=== PATIENT | male | born 1975 | race Caucasian/White ===

== ENCOUNTER 2017-10-01 15:44 | Inpatient (IN) | payer SELFPAY ==
--- NOTE | 2017-10-01 15:58 | EDPHY ---
HPI/HX/ROS/PE/MDM Narrative: CHIEF COMPLAINT: Shortness of breath, cough HPI: The patient is a 42 y/o male with a history of COPD, CHF, and hypertension complaining of worsening shortness of breath and a cough for several days. 1 month ago he arrived to [place] from [place]. Since being in [place], he has not worn oxygen at night, which he is supposed to. Several days ago he noticed bilateral leg redness, but does not believe he is retaining water. Denies history of DVT or PE. No chest pain, headache, abdominal pain, urinary or bowel complaints, fever, rash. REVIEW OF SYSTEMS: Aside from elements discussed in the HPI, a comprehensive 10-point review of systems was reviewed and is negative. PMH: COPD, CHF, hypertension, obesity SOCIAL HISTORY: Smoker, originally from [place] PHYSICAL EXAM: General: Patient is obese, alert, in no acute distress. ENT: Eyes are normal to inspection. ENT inspection normal. Neck: Normal inspection. Full range of motion. Respiratory:Scattered rales and rhonchi with poor air movement bilaterally Cardiovascular: Regular rate and rhythm. Strong peripheral pulses. Normal cap refill. Abdomen: The abdomen is nontender to palpation. There are no peritoneal signs. There are normal bowel sounds. Back: Normal to inspection. No tenderness to palpation. Skin: Normal color. No rash. Warm and dry. Extremities: 1+ pedal edema bilaterally. Full range of motion. Neuro: Oriented x3. Normal motor function. Normal sensory function. ED Course: 1607: Patient's O2Sats are 91% while on 5L room air. 1610: EKG was ordered and interpreted by myself. Please see ipnexus system for official reading. 1700: Patient's chest x-ray reveals CHF per radiologist's reading. Echocardiogram ordered. 1745: Echocardiogram does not show an effusion, but he is still tachycardic. Chest angio CT ordered. 1815: Spoke with Dr. Zapien, radiologist, regarding patient's chest angio CT. The CT reveals an infectious process primarily of the upper lobes, no PE. The patient does not have an elevated WBC. He will need to be admitted. 1820: Reassessed patient and discussed imaging and laboratory findings. He is currently comfortable while lying in bed on 5L room air using an Oxymizer. He is comfortable with plan for admission. 1823: Consulted with hospitalist service, Dr. Ghotra accepts admission of this patient. 1839: Patient is ambulating to the restroom without oxygen, he is not in any distress. MDM: This patient presents with hypoxia in setting of previous history of COPD, obesity and CHF. I see no signs of PE, ACS, acute decompensated CHF or PTX. - Data Points Imaging Results: Imaging Impressions Chest X-Ray 10/01/17 16:05 Impression: Acute CHF. Does this patient have a cardiomyopathy? Imaging: Discussed imaging studies w/ call out operator Radiologist, I viewed and interpreted images myself Laboratory Results: Laboratory Results 10/01/17 16:10 10/01/17 16:10 10/01/17 10/01/17 10/01/17 16:10 16:10 16:10 WBC 8.21 10^3/uL 10^3/uL (3.80-9.50) RBC 5.71 10^6/uL 10^6/uL (4.40-6.38) Hgb 18.1 g/dL H g/dL (13.7-17.5) Hct 53.6 % H % (40.0-51.0) MCV 93.9 fL fL (81.5-99.8) MCH 31.7 pg pg (27.9-34.1) MCHC 33.8 g/dL g/dL (32.4-36.7) RDW 15.9 % H % (11.5-15.2) Plt Count 239 10^3/uL 10^3/uL (150-400) MPV 8.9 fL fL (8.7-11.7) Neut % (Auto) 73.2 % % (39.3-74.2) Lymph % (Auto) 14.6 % L % (15.0-45.0) Grayson % (Auto) 10.4 % % (4.5-13.0) Eos % (Auto) 0.9 % % (0.6-7.6) Baso % (Auto) 0.5 % % (0.3-1.7) Nucleat RBC Rel Count 0.0 % % (0.0-0.2) Absolute Neuts (auto) 6.02 10^3/uL 10^3/uL (1.70-6.50) Absolute Lymphs (auto) 1.20 10^3/uL 10^3/uL (1.00-3.00) Absolute Monos (auto) 0.85 10^3/uL H 10^3/uL (0.30-0.80) Absolute Eos (auto) 0.07 10^3/uL 10^3/uL (0.03-0.40) Absolute Basos (auto) 0.04 10^3/uL 10^3/uL (0.02-0.10) Absolute Nucleated RBC 0.00 10^3/uL 10^3/uL (0-0.01) Immature Gran % 0.4 % % (0.0-1.1) Immature Gran # 0.03 10^3/uL 10^3/uL (0.00-0.10) D-Dimer 0.29 ug/mLFEU ug/mLFEU (0.00-0.50) Sodium 139 mEq/L mEq/L (135-145) Potassium 3.9 mEq/L mEq/L (3.5-5.2) Chloride 96 mEq/L L mEq/L (97-110) Carbon Dioxide 25 mEq/l mEq/l (22-31) Anion Gap 18 mEq/L H mEq/L (8-16) BUN 17 mg/dL mg/dL (7-23) Creatinine 0.8 mg/dL mg/dL (0.7-1.3) Estimated GFR > 60 Glucose 93 mg/dL mg/dL (70-100) Calcium 9.1 mg/dL mg/dL (8.5-10.4) Troponin I 0.033 ng/mL ng/mL (0.000-0.034) NT-Pro-B Natriuret Pep 68 pg/mL pg/mL (0-125) General Time Seen by Provider: 10/01/17 15:57 Initial Vital Signs: Initial Vital Signs Temperature (C) 36.9 C 10/01/17 15:45 Heart Rate 112 H 10/01/17 15:45 Respiratory Rate 18 10/01/17 15:45 Blood Pressure 128/81 H 10/01/17 15:45 O2 Sat (%) 82 L 10/01/17 15:45 O2 Delivery Mode Simple Mask O2 (L/minute) 5 Allergies/Adverse Reactions: meperidine [From Demerol] Allergy (Verified 10/01/17 15:45) Home Medications: Medication Instructions Recorded Albuterol [Proventil Inhaler HFA 1 - 2 puffs IH Q4H PRN 10/01/17 (*)] Albuterol [Proventil Neb] 3 ml IH QID PRN 10/01/17 Atorvastatin Calcium [Lipitor 10 10 mg PO DAILY 10/01/17 mg (*)] Carvedilol [Coreg (*)] 6.25 mg PO BIDMEAL 10/01/17 Furosemide [Lasix 40 MG (*)] 40 mg PO DAILY PRN 10/01/17 Lisinopril [Zestril 40 mg (*)] 40 mg PO BID 10/01/17 amLODIPine BESYLATE [Norvasc 5 mg 5 mg PO DAILY 10/01/17 (*)] Departure - Departure Disposition: [facility] Inpatient Acute Clinical Impression: Pneumonia Qualifiers: Pneumonia type: due to unspecified organism Laterality: unspecified laterality Lung location: upper lobe of lung Qualified Code(s): J18.1 - Lobar pneumonia, unspecified organism Condition: Fair Report Scribed for: Jonas Salinas Report Scribed by: Claudia Marin Date of Report: 10/01/17 Time of Report: 15:58 Physician Review and Approval Statement: Portions of this note were transcribed by an ED scribe. I personally performed the history, physical exam, and medical decision making; and confirm the accuracy of the information in the transcribed note.
--- NOTE | 2017-10-01 16:12 | CPEKG ---
Heart Rate: 113 RR Interval: 531 P-R Interval: 180 QRSD Interval: 92 QT Interval: 316 QTC Interval: 434 P Burnside: 26 QRS Burnside: 56 T Wave Burnside: -24 EKG Severity - BORDERLINE ECG - EKG Impression: SINUS TACHYCARDIA EKG Impression: BORDERLINE T ABNORMALITIES, DIFFUSE LEADS Electronically Signed By: Tavo Sweet 02-Oct-2017 12:59:08
[2017-10-01 16:20] LABS: PLATELET COUNT 239 10^3/uL (150-400)
[2017-10-01] MEDS ORDERED: IOPAMIDOL (ISOVUE 370) 100 ML BTL IV ONE (17:46)
--- NOTE | 2017-10-01 18:20 | ECHO ---
[email or web address] [address] [address] Main: [phone] Fax: Transthoracic Echocardiogram Name: MAXWELL LING MR#: [id number] Study Date: 10/01/2017 Study Time: 05:48 PM Date of : 1975 Age: 42 year(s) Height: 187 cm (73.62 in.) Weight: 173 kg (381.4 lb.) BSA: 2.85 m2 Gender: Male Examination: Limited Echo Indication: Low 02 Sats, Persistent Cough, Hypoxia, Tachycardia Image Quality: Contrast: Requested by: Jonas Salinas BP: 122 mmHg/80 mmHg Heart Rate: Rhythm: Indication: Low 02 Sats, Persistent Cough, Hypoxia, Tachycardia Procedure Staff [employer]iz[employer] Administrator: Geovani Marinelli RDCS Reading Physician: James Stinson MD Requesting Provider: Conclusions: 1)Technically limited echo secondary to body habitus. 2)Probably normal LV systolic function with a LVEF of 55-60%. Cannot accurately assess specific wall motions secondary to quality of images of endocardium 3)Mild RV enlargement with low normal RV systolic function. 4)No obvious severe TR. Cannot estimated accurate PA pressures. 5)Trivial pericardial effusion noted with no obvious tamponade. 6)Prominent pericardial fat pad noted. stat echo report called to ER staff. Measurements: Chambers Valvular Assessment AV/MV Valvular Assessment TV/PV Normal Normal Normal Name Value Range Name Value Range Name Value Range IVSd (2D): 1.6 cm (0.6 cm-1.1 MV E Vmax: 0.63 m/s ( - ) cm) MV A Vmax: 0.76 m/s ( - ) LVDd (2D): 4.1 cm (4.2 cm-5.9 MV E/A: 0.83 ( - ) cm) LVDs (2D): 2.7 cm (2.1 cm-4 cm) LVPWd (2D): 1.4 cm (0.6 cm-1 cm) LVEF (2D): 64 (>=54 %) RVDd(2D): 3.3 cm (1.9 cm-3.8 cmmm) Continued Measurements: Patient: MAXWELL LING Study Date: 10/01/2017 Page 1 of 2 05:48 PM Findings: Exam Comments: This is a limited echo to evaluate LV/RV function STAT on patient with low 02 sats and persistent cough, and to r/o a pericardial effusion. The Left Ventricle is hyperdynamic with a normal EF of approximately 50-60% The right venticle is normal size and function. No obvious TR to evaluate pulmonary pressures. There is no pericardial effusion. Technically difficult exam due to body habitus. Results were discussed with Dr Jonas Salinas. Consider clinical correlation due to patient condition, severe cough and hypoxia.. (No Signature Object) Patient: MAXWELL LING Study Date: 10/01/2017 Page 2 of 2 05:48 PM [id number]
[2017-10-01] MEDS ORDERED: NS 1,000 ML IV ONE (18:33)
[2017-10-01] MEDS ORDERED: guaiFENesin/CODEINE PHOS 10 ML UDCUP PO ONE (19:17)
[2017-10-01] MEDS ORDERED: guaiFENesin/CODEINE PHOS 10 ML UDCUP PO PRN (19:17)
[2017-10-01] MEDS ORDERED: ONDANSETRON 4 MG/2 ML VIAL IVP PRN (19:18)
[2017-10-01] MEDS ORDERED: ONDANSETRON DISINTEGRATING 4 MG TAB PO PRN (19:18)
[2017-10-01] MEDS ORDERED: ALBUTEROL 3 ML DEYVIAL IH PRN (19:18)
[2017-10-01] MEDS ORDERED: cefTRIAXone 1 GM in STERILE WATER INJ 10 ML IV SCH (19:30)
--- NOTE | 2017-10-01 20:08 | GHP ---
[f rep st] HISTORY AND PHYSICAL DATE OF ADMISSION: 10/01/2017 HISTORY OF PRESENT ILLNESS: The patient is a pleasant 42-year-old gentleman as of today, who present s with increased work of breathing. 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 He has noticed that he has had a difficult time breathing sinc e then. He is a smoker, and he is markedly obese at 172 kg. When he first got here he assumed he shen d pneumonia on the basis of shortness of breath without fever or chills. He therefore took some cipr ofloxacin which he had. He presents today with increased work of breathing. He had gone to [facility], he was found to be hypoxic. They tested him for influenza, it was negative. He had unremarkabl e chest x-ray. He was referred for here. Workup reveals normal D-dimer, indeterminate troponin, normal BNP, no metabolic alkalosis, polycythem ia. A chest x-ray (interpreted by me) showing possible CHF, a CTA of the chest (also interpreted by me) showing no pulmonary embolism, but upper lobe ground-glass nodularity. When I speak with the patient he is coughing, but able to speak in full sentences. He acknowledges t hat altitude does not agree with him, but he is acutely ill. 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 He does not have fever or chills, although last night he notes he could not get warm. He possibly shen s some myalgias. REVIEW OF SYSTEMS: Complete 10-point review of systems conducted, negative as noted in the HPI. PAST MEDICAL HISTORY: Obesity, hypertension, hyperlipidemia, EDIE, on CPAP. ALLERGIES: Demerol. HOME MEDICATIONS: Albuterol, amlodipine, atorvastatin, carvedilol, lisinopril, and furosemide. He t ook the furosemide just prior to getting here, and he has not urinated. SOCIAL HISTORY: He smokes cigarettes, about a pack a day. Drinks alcohol daily; it sounds like not to excess. FAMILY HISTORY: Notable for leukemia and diabetes. PHYSICAL EXAMINATION: VITAL SIGNS: Afebrile, blood pressure 128/81, pulse 112, breathing 18 times a minute, 82% on 2 L, on room air of 95% on 5 L. GENERAL: Increased work of breathing, but otherwise no acute distress. HEENT: Sclerae anicteric. Oropharynx clear. Mucous membranes are moist. NECK : Supple without lymphadenopathy. Cannot assess JVD secondary to habitus. LUNGS: Notable for air movement, but that is all I can hear given his size. HEART: S1, S2. No murmur palpable. ABDOMEN: Obese, soft. LOWER EXTREMITIES: Show trace edema bilaterally. Calves are nontender. SKIN: Witho ut rash. NEUROLOGIC: Nonfocal. LABORATORY TESTS: Sodium 139, potassium 3.9, chloride 96, bicarb 25, BUN 17, creatinine 0.8. Tropon in 0.033. BNP is 68. D-dimer 0.29. White count is 8, hematocrit is 54, platelets are 239,000. IMAGING: Studies are as in the HPI. EKG interpreted by me shows sinus tach at 113 with normal axis and intervals. No ST or T-wave changes. Echocardiogram performed in the emergency department shows poor windows, but LV function of 55% to 60 %. It sounds like they had difficult time seeing the exact wall motion. There is no obvious severe tricuspid regurgitation. Mild RV enlargement with low-normal RV systolic function. No evidence of t amponade. Trivial pericardial effusion. I have discussed the case Dr. Corby Salinas. ASSESSMENT/PLAN: 42-year-old gentleman presents with acute hypoxemic respiratory failure. 1. Acute hypoxemic respiratory failure. I believe this is secondary to a viral illness and/or pneum onia. He has received recent course of fluoroquinolone. I will start him on ceftriaxone and doxycyc line. He is influenza negative, so I will hold off on empiric Tamiflu. We will check respiratory sy ncytial virus as well. 2. Pneumonia as above. 3. Indeterminate troponin. We will cycle this. I suspect this is impact on his increased work of b reathing. 4. Obesity, hypoventilation syndrome. The patient has a normal serum bicarb, so he may not have it. I do note that in the past the patient had pneumonia, required outpatient oxygen therapy. I suspec t he will need oxygen on discharge. 5. Polycythemia. This is secondary to his sleep apnea and likely chronic hypoxia. 6. Prophylaxis. Pharmacologic prophylaxis indicated. DISPOSITION: Inpatient status, PCU. /[id number]/MODL
[2017-10-01] MEDS: NICOTINE 14 MG/24 HR PATCH TD SCH (21:51)
[2017-10-01] MEDS: LISINOPRIL 40 MG TAB PO SCH (21:52)
[2017-10-01] MEDS: DOXYCYCLINE INJ 100 MG in NS 250 ML IV SCH (22:47)
[2017-10-02 04:00] LABS: PLATELET COUNT 232 10^3/uL (150-400)
[2017-10-02] MEDS: ACETAMINOPHEN 325 MG TAB PO PRN ×2 (06:43→17:35)
--- NOTE | 2017-10-02 07:25 | PDMN ---
Medical Necessity Medical necessity: Pt meets INPT criteria per MD and [facility] M-282 Pneumonia, Community Acquired (with acute hypoxemic respiratory failure, RA sat 82%, indeterminate troponin, polycythemia; comorbid obesity, hypoventilation syndrome ).
[2017-10-02] MEDS ORDERED: chlordiazePOXIDE 25 MG CAP PO SCH (09:23)
[2017-10-02] MEDS: IPRATROPIUM/ALBUTEROL 3 ML DEYVIAL IH SCH ×3 (10:02→16:14)
[2017-10-02] MEDS: ENOXAPARIN 40 MG/0.4 ML SYR SC SCH ×2 (10:03→20:52)
[2017-10-02] MEDS: LISINOPRIL 40 MG TAB PO SCH ×2 (10:04→20:52)
[2017-10-02] MEDS: chlordiazePOXIDE 25 MG CAP PO SCH ×2 (10:06→20:53)
[2017-10-02] MEDS: ATORVASTATIN CALCIUM 10 MG TAB PO SCH (10:06)
[2017-10-02] MEDS: amLODIPine BESYLATE 5 MG TAB PO SCH (10:06)
[2017-10-02] MEDS: CARVEDILOL 6.25 MG TAB PO SCH ×2 (10:07→17:36)
[2017-10-02] MEDS: NICOTINE 14 MG/24 HR PATCH TD SCH (10:08)
[2017-10-02] MEDS: LORazepam 2 MG/ML INJ IVP PRN ×3 (10:16→20:51)
[2017-10-02] MEDS: DOXYCYCLINE INJ 100 MG in NS 250 ML IV SCH ×2 (11:24→20:53)
--- NOTE | 2017-10-02 12:03 | HOSPPROG ---
Hospitalist Progress Note Assessment/Plan: # Acute Alcohol withdrawal - pt drink 8-10 vodka drinks/day tremulous, anxious Tele (personally reviewed and interpreted) sinus tach 110' s - start CIWA - Librium 50mg now and scheduled - telemetry monitoring - iv thiamine - check phos # Acute hypoxic respiratory failure - suspect 2/2 PNA- oxygen saturations 96% on 6L viral pathogen + for human metapneumovirus- wbc 9.2 - cont empiric antibiotics - start beta agonists inhaled - monitor blood cultures # morbid obesity # EDIE- cont CPAP # HTN- cont home meds # proph -lovenox # diet- cardiac #dispo- > 2MN as pt acutely ill requiring IV medications for withdrawal I have discussed the case with RN - will treat aggressively on CIWA Subjective: feels anxious Objective: Vital Signs Temp Pulse Resp BP Pulse Ox 36.7 C 113 H 40 H 152/83 H 86 L 10/02/17 11:29 10/02/17 11:29 10/02/17 11:29 10/02/17 11:29 10/02/17 11:29 Microbiology 10/01/17 20:36 Respiratory Panel (PCR) - Final Nasal, Sinus - Swab Human Metapneumovirus Laboratory Results 10/02/17 03:35 10/02/17 03:35 10/01/17 10/02/17 10/03/17 05:59 05:59 05:59 Intake Total 300 Output Total 700 Balance -400 - Physical Exam Constitutional: obese Eyes: anicteric sclera Ears, Nose, Mouth, Throat: moist mucous membranes Cardiovascular: regular rate and rhythym, tachycardia Respiratory: respiratory distress, No expiratory wheeze Gastrointestinal: normoactive bowel sounds Genitourinary: no bladder fullness Skin: warm Musculoskeletal: No asymmetric calves Neurologic: AAOx3 Psychiatric: anxious Lymph, Heme, Immunologic: no cervical LAD ICD10 Worksheet Patient Problems: Problems Problem Status Onset Pneumonia Acute
--- NOTE | 2017-10-02 14:57 | ASMTCMCOM ---
CM Note CM Note Notes: Chart reviewed. Discussed patient care in round. 42 year old male admitted via ED for c/o sob and hypoxia. He is here from [place] . He has been feeling unwell. He also admits to ETOH of 10 vodkas a day, Currently on CIWA and sleeping due to medications. He has been screened as he is self pay and since he is out of state, no current resources available. CM to follow. Date Signed: 10/02/2017 02:56 PM Electronically Signed By:Rajani Kasper RN
[2017-10-03] MEDS: IPRATROPIUM/ALBUTEROL 3 ML DEYVIAL IH SCH ×4 (04:16→17:18)
[2017-10-03] MEDS: LORazepam 2 MG/ML INJ IVP PRN ×4 (04:48→13:00)
[2017-10-03] MEDS: ATORVASTATIN CALCIUM 10 MG TAB PO SCH (07:51)
[2017-10-03] MEDS: amLODIPine BESYLATE 5 MG TAB PO SCH (07:51)
[2017-10-03] MEDS: LISINOPRIL 40 MG TAB PO SCH (07:51)
[2017-10-03] MEDS: chlordiazePOXIDE 25 MG CAP PO SCH ×2 (07:51→17:16)
[2017-10-03] MEDS: CARVEDILOL 6.25 MG TAB PO SCH ×2 (07:51→17:16)
[2017-10-03] MEDS: ENOXAPARIN 40 MG/0.4 ML SYR SC SCH ×2 (07:52→20:52)
[2017-10-03] MEDS: NICOTINE 14 MG/24 HR PATCH TD SCH (08:43)
[2017-10-03] MEDS: THIAMINE HCL 500 MG in NS 500 ML IV SCH (08:43)
[2017-10-03] MEDS: DOXYCYCLINE INJ 100 MG in NS 250 ML IV SCH ×2 (08:43→20:52)
[2017-10-03] MEDS: ACETAMINOPHEN 325 MG TAB PO PRN (09:57)
[2017-10-03] MEDS: methylPREDNISolone SOD SUCC 125 MG/2 ML VIAL IVP SCH ×3 (09:57→17:16)
[2017-10-03] MEDS ORDERED: FUROSEMIDE 20 MG/2 ML VIAL IVP ONE (10:03)
--- NOTE | 2017-10-03 14:35 | GCON ---
[f rep st] CONSULTATION DISTANCE LEARNING COORDINATOR CONSULTATION REASON FOR ADMISSION: Hypercarbic respiratory failure, viral pneumonia. HISTORY: The patient is a pleasant 42-year-old white male, with a past medical history including mor bid obesity, hypertension, hyperlipidemia, obstructive sleep apnea, for which he is on CPAP. He has been visiting [place] since mid August. He presented to the emergency room on the , with comp laints of breathlessness and increased work of breathing. He originally went to urgent care, and was found to be hypoxemic, and was transferred to our emergency room. He was initially admitted to the floor, however, secondary to breathlessness and some somnolence, an arterial blood gas was performed, he was found to be hypercarbic, and he subsequently has been transferred to the intensive care unit. He is currently on BiPAP. He denies any chest pain, pleuritic-type chest pain or angina equivalent . There is no fever or night sweats. REVIEW OF SYSTEMS: A 10-point review of systems was performed and is negative except for what is in HPI. PAST MEDICAL HISTORY: He has morbid obesity, hyperlipidemia, obstructive sleep apnea, for which he i s on CPAP, and hypertension. ALLERGIES: Demerol. FAMILY HISTORY: Significant for leukemia and diabetes. SOCIAL HISTORY: He is a 20+ pack-year smoker and continues to smoke. He drinks alcohol daily. 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 MEDICATIONS: At home include albuterol, amlodipine, atorvastatin, carvedilol, lisinopril and Lasix. PHYSICAL EXAM: VITAL SIGNS: Blood pressure 133/75, pulse is 97, respirations 23, temperature is 37. 2, oxygen saturation 98% on BiPAP 60%. GENERAL: He is a morbidly obese, but very pleasant, 42-year- old white male, who is resting comfortably, in no acute distress. HEENT: Eyes are PERRLA, EOMI. Th roat exam is deferred secondary to BiPAP. NECK: Supple. There is no cervical adenopathy. HEART: Regular rate and rhythm. HEART: Sounds are distant. LUNGS: Diminished breath sounds, but no wheez e. ABDOMEN: Soft, nontender. Bowel sounds are present. EXTREMITIES: No clubbing, cyanosis, or ed annalise. LABORATORIES: White count 7.1, hemoglobin 17, hematocrit 53, platelet count is 293. Sodium 142, pot assium 4.9, chloride 97, CO2 is 36, BUN 16, creatinine 0.7, glucose is 111. Influenza A and B are ne gative. RSV is negative. Arterial blood gas: PH is 7.28, pCO2 of 73, pO2 of 63, bicarb is 35, oxyge n saturation 90%. CT angiogram of the chest shows bilateral ground-glass attenuation in the upper lobes. Echocardiogra m shows normal ejection fraction of 55% to 60%. They are unable to evaluate pulmonary pressures seco ndary to body habitus. IMPRESSION: 1. Hypercarbic respiratory failure. I feel this is a combination of his obstructive sleep apnea, li quin obesity hypoventilation syndrome, and viral lung infection. 2. Viral pneumonia with human metapneumovirus. 3. Morbid obesity. 4. Obstructive sleep apnea. 5. Probable obesity hypoventilation syndrome. 6. Hypertension. 7. Hyperlipidemia. 8. Obstructive sleep apnea. 9. Tobacco abuse. RECOMMENDATIONS: 1. We will continue BiPAP for now. 2. We will repeat ABG in approximately 2 hours. 3. deep vein thrombosis and pulmonary embolus prophylaxis. 4. Close cardiovascular monitoring. 5. Stress ulcer prophylaxis. 6. Continue the majority of his home medications. 7. Agree with droplet and contact precautions. /[id number]/MODL
[2017-10-03] MEDS ORDERED: LIDOCAINE 1% 300 MG/30 ML SDV ONE (18:11)
[2017-10-03] MEDS ORDERED: LIDOCAINE 2% JELLY 20 ML (UROJECT) ONE (18:11)
[2017-10-03] MEDS ORDERED: LIDOCAINE 2% JELLY 5 ML TUBE ONE (18:12)
[2017-10-03] MEDS ORDERED: BENZOCAINE UNIT DOSE SPRAY HURRICAINE MM ONE (18:23)
[2017-10-03] MEDS ORDERED: PROPOFOL/EMULSION 1,000 MG/100 ML BOTTLE IV ONE (18:25)
[2017-10-03] MEDS ORDERED: fentanYL/NACL/100 ML BAG IV ONE (18:26)
--- NOTE | 2017-10-03 18:29 | HOSPPROG ---
Hospitalist Progress Note Assessment/Plan: Assessment: 42-year-old male presenting with acute hypoxic and hypercapnic respiratory failure secondary to human metapneumovirus Plan: # Acute human metapneumovirus viral pneumonia. Bilateral and worsening on CXR today, high risk for requiring intubation # Acute Alcohol withdrawal. Heavy use hx, escalating 10/02, requiring schedule librium - despite scheduled librium 50 tid, required escalating doses of IV ativan this AM, transferred to SDU # Acute encephalopathy. Evidenced by global brain dysfunction characterized as somnolence, unresponsive to verbal stimuli, all of which are an acute change from baseline, likely 2/2 metabolic effects of hypercapnea + toxic effects of benzos used to tx alcohol withdraw # Acute hypercapnic and hypoxic respiratory failure. Evidenced by pH 7.28/pCO2 73 + SpO2 62% on room air, visible tachypnea and labored breathing (RR 40), requiring 15LPM and then BiPAP, 2/2 viral PNA w/ possible reactive airway component - identified as critically ill this AM, started BiPAP, transferred to Step Down Unit - 40 minutes of total critical care time spent this AM assessing patient, performing additional w/u, facilitating SDU transfer - worsening ABG this afternoon and ongoing tachypnea, intubated this evening # Possible acute reactive airway exacerbation. Evidenced by diffuse exp wheezes , heavy smoking hx, likely also having OHS component - start methylpred 60 q6, heavenly duonebs, cont doxy - BiPaP, then intubation, as above # morbid obesity and likely OHS # EDIE # HTN # proph - lovenox 40 # diet - NPO # code - full # dispo - ADD uncertain, critically ill Subjective: patient w/ somnolence, visible resp distress this AM Objective: Vital Signs Temp Pulse Resp BP Pulse Ox 37.2 C 83 30 H 135/63 H 93 10/03/17 07:42 10/03/17 17:16 10/03/17 17:00 10/03/17 17:16 10/03/17 17:00 Laboratory Results 10/03/17 03:56 10/03/17 16:15 10/02/17 10/03/17 10/04/17 05:59 05:59 05:59 Intake Total 300 2150 Output Total 700 900 Balance -400 1250 - Physical Exam Constitutional: obese, uncomfortable, other (diaphoretic ), No no apparent distress (moderate distress) Cardiovascular: tachycardia, edema (trace bilat LE), No systolic murmur, No irregularly irregular Respiratory: expiratory wheeze, inspiratory crackles, respiratory distress ( visible tachypnea and labored breathing) Gastrointestinal: normoactive bowel sounds, soft, non-tender abdomen, no palpable masses Neurologic: AAOx3 Psychiatric: encephalopathic (somnolent, not responsive to verbal stimuli, responds to tactile stimuli, concentration 7/7 once awakened), flat affect ICD10 Worksheet Patient Problems: Problems Problem Status Onset Pneumonia Acute
--- NOTE | 2017-10-03 18:45 | SOAPPROG ---
SOAP Progress Note Assessment/Plan: Assessment: RESPIRATORY FAILURE SECONDARY TO MORBID OBESITY AND PULMONARY INFECTION. Plan: Requested intubation. Fentanyl 150 mcg and versed 3 mg IV sedation given. Posterior pharynx sprayed with huricaine spray. Glidescope inserted and good view of VC obtained. Rocuronium 60 mg IV given. Glidescope placed and ETT passed , one attempt. Colormetric detection of CO2 confirmed trachial placement. 10/03/17 18:42 10/03/17 18:46 Subjective: Morbidly obese male with CPAP mask in place. SPO2 90's. spontaneous respiration. Objective: Vital Signs Temp Pulse Resp BP Pulse Ox 37.2 C 83 30 H 135/63 H 93 10/03/17 07:42 10/03/17 17:16 10/03/17 17:00 10/03/17 17:16 10/03/17 17:00 Laboratory Results 10/03/17 03:56 10/03/17 16:15 10/02/17 10/03/17 10/04/17 05:59 05:59 05:59 Intake Total 300 2150 Output Total 700 900 Balance -400 1250 ICD10 Worksheet Patient Problems: Problems Problem Status Onset Pneumonia Acute
[2017-10-03] MEDS ORDERED: fentaNYL 100 MCG/2 ML INJ ONE (19:12)
[2017-10-03] MEDS ORDERED: MIDAZOLAM 2 MG/2 ML VIAL ONE (19:12)
[2017-10-03] MEDS ORDERED: ROCURONIUM 100 MG/10 ML VIAL ONE (19:12)
[2017-10-03] MEDS ORDERED: PROTOCOL POTASSIUM 1 DOSE MISC PRN (20:24)
[2017-10-03] MEDS ORDERED: PROTOCOL MAGNESIUM 1 DOSE IV PRN (20:24)
[2017-10-03] MEDS: PROPOFOL/EMULSION 100 ML IV SCH (20:51)
[2017-10-03] MEDS: FAMOTIDINE 20 MG/NACL 50 ML IV SCH (20:52)
[2017-10-03] MEDS: CHLORHEXIDINE GLUCONATE 15 ML UDL PO SCH (20:52)
[2017-10-03] MEDS: VECURONIUM BROMIDE 50 MG in D5W 50 ML IV SCH (21:41)
--- NOTE | 2017-10-03 22:07 | POSTOPPROG ---
Post Op Note Date of Operation: 10/03/17 Surgeon: Cristian Jefferson Anesthesia: Local (Specify) Pre-op Diagnosis: respiratory failure Post-op Diagnosis: same Procedure: R IJ TLC placement Findings: good draw/flush all 2 ports Inf/Abcess present in the surg proc area at time of surgery?: No
[2017-10-03] MEDS: NS 1,000 ML IV SCH (23:02)
--- NOTE | 2017-10-03 23:56 | GOP ---
[f rep st] OPERATIVE REPORT DATE OF OPERATION: SURGEON: Cristian Jefferson MD ANESTHESIA: Local anesthetic. PREOPERATIVE DIAGNOSIS: Poor IV access, viral pneumonia. POSTOPERATIVE DIAGNOSIS: Poor IV access, viral pneumonia. PROCEDURE PERFORMED: Central line placement, right internal jugular. FINDINGS: Good flush into all 3 ports. INDICATIONS: A42 year-old gentleman who presents with infection, respiratory failure. He has been intubated. He has poor IV access. DESCRIPTION OF PROCEDURE: Patient is a gentleman who has preoperative identification of the cannulation site done with [employer], and sterile draping and prep was performed in the standard fashion. Time-out procedure was then done according to institutional standards. Local anesthetic was infused in skin and subcutaneous tissues, and, with a second stick in the right IJ, the IJ was cannulated with an 18-gauge needle. Seldinger technique was used to maintain access, and the area was dilated, and then catheter was placed in to 20 cm without difficulty. The catheter was secured in place. Biopatch placed. Good blood draw and flush on all 3 ports. Chest x-ray is pending. /[id number]/MODL MTDD
[2017-10-04] MEDS: ALBUTEROL 60 PUFFS/8 GM MDI IH SCH ×7 (00:03→23:52)
[2017-10-04] MEDS: VECURONIUM BROMIDE 50 MG in D5W 50 ML IV SCH (00:11)
[2017-10-04] MEDS: LISINOPRIL 40 MG TAB PO SCH ×3 (00:48→21:55)
[2017-10-04] MEDS: chlordiazePOXIDE 25 MG CAP PO SCH ×2 (00:48→11:00)
[2017-10-04] MEDS: PROPOFOL/EMULSION 100 ML IV SCH ×7 (00:53→22:15)
[2017-10-04] MEDS: methylPREDNISolone SOD SUCC 125 MG/2 ML VIAL IVP SCH ×4 (00:54→18:09)
[2017-10-04] MEDS: fentaNYL/NACL 100 ML IV SCH ×2 (00:54→22:15)
[2017-10-04] MEDS: NS 1,000 ML IV SCH ×2 (00:55→16:59)
[2017-10-04] MEDS: VECURONIUM BROMIDE IV SCH ×2 (02:13→19:00)
[2017-10-04] MEDS: D5W IV SCH ×2 (02:13→19:00)
[2017-10-04] MEDS ORDERED: MAGNESIUM SULF 1 GM/DEXTROSE 100 ML IV ONE ×2 (03:15→06:00)
[2017-10-04 04:53] LABS: PLATELET COUNT 224 10^3/uL (150-400)
[2017-10-04 05:25] LABS: INR 1.04 (0.83-1.16); PROTIME(PATIENT) 13.8 SEC (12.0-15.0)
--- NOTE | 2017-10-04 09:00 | PDINTPN ---
Data Processor Progress Note Assessment/Plan: Assessment/plan: * Acute respiratory failure secondary to viral pneumonia and obesity hypoventilation syndrome. Tenuous on mechanical ventilation. Peak pressures are somewhat high. -will continue paralytic for now -will place patient on pressure control ventilation -recheck ABG later today * Viral pneumonia-human metapneumovirus. * Atelectasis-likely secondary to mucus plug. Will perform fiberoptic bronchoscopy today * Morbid obesity * Obesity hypoventilation syndrome * Obstructive sleep apnea * Sedation-adequate on propofol, fentanyl and paralytic * Hypertension-controlled * Tobacco abuse * VTE prophylaxis * Stress ulcer prophylaxis * Nutrition-none currently -will consult dietary and start tube feeds today Subjective: Sedated on mechanical ventilation Objective: Vital Signs Temp Pulse Resp BP Pulse Ox 35.5 C L 69 22 H 148/72 H 93 10/04/17 07:00 10/04/17 07:00 10/04/17 07:00 10/04/17 07:00 10/04/17 07:00 Laboratory Results 10/04/17 04:15 10/04/17 04:15 10/03/17 10/04/17 10/05/17 05:59 05:59 05:59 Intake Total 2150 1933 Output Total 900 600 Balance 1250 1333 PT 13.8 SEC (12.0-15.0) 10/04/17 04:15 INR 1.04 (0.83-1.16) 10/04/17 04:15 Laboratory Results 10/04/17 04:15 10/04/17 04:15 10/04/17 10/04/17 05:55 04:15 Patient Temperature 35.4 DEGREES DEGREES pCO2 42 mmHg H mmHg (34 - 38) pO2 53 mmHg L mmHg (65 - 75) Total CO2 29 mEq/L H mEq/L (23 - 27) ABG pH 7.42 (7.35 - 7.45) ABG PO2/FiO2 Ratio 53 RATIO RATIO ABG HCO3 27 mEq/L H mEq/L (22 - 26) ABG O2 Saturation 91 % L % (92 - 95) ABG Base Excess 2.3 mEq/L mEq/L (-2.5 - 2.5) O2 Concentration % 100 % % Actual Respiration Rate 22 Set Respiration Rate 22 SIMV YES Tidal Volume 600 End Tidal CO2 55 PEEP 12 Pressure Support 7 Calcium 8.8 mg/dL mg/dL (8.5 - 10.4) Magnesium 1.7 mg/dL mg/dL (1.6 - 2.3) Total Bilirubin 0.8 mg/dL mg/dL (0.1 - 1.4) AST 62 IU/L H IU/L (17 - 59) Alkaline Phosphatase 82 IU/L IU/L (38 - 126) Total Protein 6.0 g/dL L g/dL (6.3 - 8.2) Albumin 3.4 g/dL L g/dL (3.5 - 5.0) Chest [id number] by myself. Central line in good position. Endotracheal tube is in good position. There is some evidence of cardiomegaly. There is atelectasis in the right lower lobe - Time Spent With Patient Time Spent With Patient: 35 min of critical care time spent with patient. Case discussed with respiratory therapy and nursing Physical Exam - Physical Exam General Appearance: obese (Morbidly), No alert (Sedated) EENT: PERRL/EOMI, ET tube Neck: non-tender Respiratory: decreased breath sounds, crackles, No wheezing Cardiac/Chest: normal peripheral pulses, regular rate, rhythm Abdomen: normal bowel sounds, non-tender, soft Male Genitalia: deferred Rectal: deferred Skin: normal color, warm/dry Extremities: non-tender, normal inspection, normal capillary refill Neuro/Psych: No alert (Sedated) ICD10 Worksheet Patient Problems: Problems Problem Status Onset Pneumonia Acute
[2017-10-04] MEDS: ENOXAPARIN 40 MG/0.4 ML SYR SC SCH ×2 (10:25→21:54)
[2017-10-04] MEDS: NICOTINE 14 MG/24 HR PATCH TD SCH (10:25)
[2017-10-04] MEDS: FAMOTIDINE 20 MG/NACL 50 ML IV SCH ×2 (10:26→21:54)
[2017-10-04] MEDS: amLODIPine BESYLATE 5 MG TAB PO SCH (10:31)
[2017-10-04] MEDS: CHLORHEXIDINE GLUCONATE 15 ML UDL PO SCH ×2 (10:31→21:54)
[2017-10-04] MEDS: ATORVASTATIN CALCIUM 10 MG TAB PO SCH (11:00)
[2017-10-04] MEDS: CARVEDILOL 6.25 MG TAB PO SCH (11:00)
[2017-10-04] MEDS: DOXYCYCLINE INJ 100 MG in NS 250 ML IV SCH ×2 (11:14→21:54)
[2017-10-04] MEDS: THIAMINE HCL 500 MG in NS 500 ML IV SCH (11:15)
--- NOTE | 2017-10-04 12:14 | HOSPPROG ---
Hospitalist Progress Note Assessment/Plan: 42-year-old male presenting with acute hypoxic and hypercapnic respiratory failure secondary to human metapneumovirus # Acute human metapneumovirus viral pneumonia. -Initially started on Doxy, cont IV for now # Acute hypercapnic and hypoxic respiratory failure. -Mechanical ventilation -pulm following #Obesity Hypoventilation Syndrome, EDIE #Likely Obstructive airway disease, Tobacco abuse disorder -Cont Solumedrol, Doxy -Nicotine Patch # Acute Alcohol withdrawal. Heavy use hx, escalating 10/02, requiring schedule librium prior to intubation - stop Librium -Cont CIWA -Schedule IV Ativan # Acute encephalopathy. # morbid obesity # HTN -BPs ok -Holding PO meds now. NO known history of Afib. # proph - lovenox 40 # diet - NPO, will start tube feeds today via NGT. NS at 75ml/hr # code - full # dispo - ADD uncertain, critically ill total critical care time on this patient with resp failure, viral pneumonia, and ETOH WD is 35 minutes Subjective: intubated overnight. sedated currently. BP 120's systolic Objective: Vital Signs Temp Pulse Resp BP Pulse Ox 35.7 C L 71 22 H 124/64 H 95 10/04/17 11:00 10/04/17 11:00 10/04/17 11:00 10/04/17 11:00 10/04/17 11:00 Laboratory Results 10/04/17 04:15 10/04/17 04:15 10/03/17 10/04/17 10/05/17 05:59 05:59 05:59 Intake Total 2150 1933 Output Total 900 600 Balance 1250 1333 PT 13.8 SEC (12.0-15.0) 10/04/17 04:15 INR 1.04 (0.83-1.16) 10/04/17 04:15 - Physical Exam Constitutional: no apparent distress Ears, Nose, Mouth, Throat: moist mucous membranes Cardiovascular: regular rate and rhythym, No JVD, No edema Respiratory: no respiratory distress, reduced air movement Gastrointestinal: normoactive bowel sounds, No distension Skin: warm Neurologic: No AAOx3 Psychiatric: encephalopathic, other (sedated) Lymph, Heme, Immunologic: No petechiae ICD10 Worksheet Patient Problems: Problems Problem Status Onset Pneumonia Acute
[2017-10-04] MEDS: LORazepam 2 MG/ML INJ IV SCH ×2 (12:49→18:10)
[2017-10-04] MEDS ORDERED: LIDOCAINE 1% 300 MG/30 ML SDV ONE (14:41)
[2017-10-04] MEDS ORDERED: LIDOCAINE 2% JELLY 5 ML TUBE ONE (14:42)
--- NOTE | 2017-10-04 15:33 | GPN ---
[f rep st] PROCEDURE NOTE PROCEDURE: Fiberoptic bronchoscopy. INDICATION: Mucous plugging. ANESTHESIA GIVEN: Patient is currently sedated, paralyzed and on mechanical ventilation. Procedure was performed in the intensive care unit with continuous pulse ox, EKG and blood pressure monitoring. Please note N95 masks were used by all throughout the procedure. Also note, the patient is on [facility] anical ventilation which is by definition a closed system and poses no risk to airborne pathogens. PROCEDURE IN DETAIL: After a time-out was performed, bronchoscope was entered through a #7.5 endotra cheal tube. Distal trachea and fredy were visualized, showed no endobronchial lesion, normal-appear ing mucosa. Bronchoscope entered in the left lung. Left upper lobe, lingula, left lower lobe includ ing subsegments were visualized, showed no endobronchial lesions and normal-appearing mucosa. Bronch oscope entered in the right lung. Right upper lobe, right middle lobe, including subsegments were felix bsequently visualized and showed no endobronchial lesion, normal-appearing mucosa. Bronchoscope was then entered into the right lower lobe. There was copious amounts of thick tenacious mucus plugging throughout all basilar segments as well as superior segment. These were therapeutically aspirated. Bronchoalveolar lavage taken from the right lower lobe. This was sent for C and S, AFB, and fungal c ultures. Patient tolerated the procedure well. There were no apparent complications. /[id number]/MODL
[2017-10-04] MEDS ORDERED: LIDOCAINE 2% JELLY 5 ML TUBE TP ONE (16:11)
[2017-10-04] MEDS ORDERED: LIDOCAINE 1% 300 MG/30 ML SDV MISC ONE (16:11)
[2017-10-05] MEDS: LORazepam 2 MG/ML INJ IV SCH ×5 (01:39→23:37)
[2017-10-05] MEDS: methylPREDNISolone SOD SUCC 125 MG/2 ML VIAL IVP SCH ×3 (01:39→11:35)
[2017-10-05 04:05] LABS: PLATELET COUNT 240 10^3/uL (150-400)
[2017-10-05] MEDS: ALBUTEROL 60 PUFFS/8 GM MDI IH SCH ×6 (04:21→23:50)
[2017-10-05] MEDS: NS 1,000 ML IV SCH ×2 (05:32→19:28)
[2017-10-05] MEDS: D5W IV SCH (05:32)
[2017-10-05] MEDS: VECURONIUM BROMIDE IV SCH (05:32)
[2017-10-05] MEDS: PROPOFOL/EMULSION 100 ML IV SCH ×8 (06:52→23:37)
[2017-10-05] MEDS: DOXYCYCLINE INJ 100 MG in NS 250 ML IV SCH (09:08)
[2017-10-05] MEDS: THIAMINE HCL 500 MG in NS 500 ML IV SCH (09:08)
[2017-10-05] MEDS: FAMOTIDINE 20 MG/NACL 50 ML IV SCH ×2 (09:09→21:14)
[2017-10-05] MEDS: NICOTINE 14 MG/24 HR PATCH TD SCH (09:09)
[2017-10-05] MEDS: ENOXAPARIN 40 MG/0.4 ML SYR SC SCH ×2 (09:09→21:14)
[2017-10-05] MEDS: CHLORHEXIDINE GLUCONATE 15 ML UDL PO SCH ×2 (09:10→21:14)
[2017-10-05] MEDS ORDERED: THIAMINE HCL 100 MG TAB PO SCH (09:23)
[2017-10-05] MEDS: fentaNYL/NACL 100 ML IV SCH ×2 (11:31→21:14)
--- NOTE | 2017-10-05 12:05 | HOSPPROG ---
Hospitalist Progress Note Assessment/Plan: # acute hypercapnic and hypoxic resp failure d/t human metapneumovirus; underlying OHS/EDIE - s/p bronch - cx NGTD - cont mechanical ventilation, sedation, paralytics - stop doxy today - consider stopping steroids # hypotension (has a history of hypertension) - currently holding meds # etOH abuse - currently on propofol to control withdrawal # morbid obesity - BMI 48 # acute encephalopathy - d/t above # pulmonary nodularity - needs f/t CT in 3-6 months # tobacco use # FEN - start trickle feeds today # ppx - pepcid, lovenox Subjective: intubated, sedated, paralyzed Objective: Vital Signs Temp Pulse Resp BP Pulse Ox 35.9 C L 81 22 H 117/83 H 89 L 10/05/17 09:00 10/05/17 09:25 10/05/17 09:25 10/05/17 09:00 10/05/17 09:25 Microbiology 10/04/17 15:15 Gram Stain - Final Lung Right Lobe - Bronchial Washings Laboratory Results 10/05/17 03:50 10/05/17 03:50 10/04/17 10/05/17 10/06/17 05:59 05:59 05:59 Intake Total 1933 3895 Output Total 600 2350 Balance 1333 1545 PT 13.8 SEC (12.0-15.0) 10/04/17 04:15 INR 1.04 (0.83-1.16) 10/04/17 04:15 critical care time 35 minutes; critically ill from respiratory failure requiring mechanical ventilation - Physical Exam Constitutional: obese Ears, Nose, Mouth, Throat: other (ET tube) Cardiovascular: no murmur, rub, or gallop, systolic murmur Respiratory: no rales or rhonchi, clear to auscultation Gastrointestinal: soft, non-tender abdomen, no palpable masses Genitourinary: simmons in urethra ICD10 Worksheet Patient Problems: Problems Problem Status Onset Pneumonia Acute
--- NOTE | 2017-10-05 12:15 | PDINTPN ---
Intrusion Analyst Progress Note Assessment/Plan: Assessment/plan: 42 morbidly obese Lokesh vasquez from [place] since Aug admitted 10/01/17 with SOB after self treating "pneumonia" with cipro. He was apparently hypoxic as well at an urgent care. On arrival he was admitted to the floor on 6 lpm NC, and on HD#2 showed signs of etoh withdrawal and admitted to 8-10 vodkas daily so was started on Librium and CIWA protocol. On 10/03 he was somnolent and an ABG showed an acute hypercapnic respiratory failure treated initially with BIPAP. However, by 1799 his ABG was worse and required intubation by anesthesia via glidescope on 1st attempt. His CXR has been fairly unremarkable save for small- moderate pleural effusions, but because of increasing airway pressures was paralyzed and placed on PC ventilation on 10/04. A procalcitonin on 10/05 was unremarkable, and he was switched back to AC. * Acute hypercapneic respiratory failure- the etiology is uncertain to me but may be a combination of sedation, EDIE, bipap failure, and fluid overload. With a low procalcitonin on admission of 0.07, infection seems unlikely, but will recheck now. A new ABG is pending at this time as we attempt to de-escalate his respiratory support. At this time I dont think he is an ECMO/ECOR candidate. In effort to reduce his risk of critical illness myopathy, will attempt to dc vecuronium today, continue with deep sedation, and reduce FiO2 as tolerated. Additional bronchoscopy not indicated, nor is ongoing antibiotics- agree with dc doxycycline. * ETOH wd- impossible to evaluate under the current circumstances. Watch for signs of WD and continue with thiamine, MVI. * COPD? he is a bit young to develop significant COPD and does not have asthma in his PMH. I'm not clear systemic steroids are beneficial at this point so will hold for now. * HTN- stable for now. * * * critical care time 65 minutes including bedside eval, chart review and discussion with multiple providers Subjective: Paralyzed and sedated; no acute events overnight Objective: Vital Signs Temp Pulse Resp BP Pulse Ox 35.9 C L 81 22 H 117/83 H 89 L 10/05/17 09:00 10/05/17 09:25 10/05/17 09:25 10/05/17 09:00 10/05/17 09:25 Microbiology 10/04/17 15:15 Gram Stain - Final Lung Right Lobe - Bronchial Washings Laboratory Results 10/05/17 03:50 10/05/17 03:50 10/04/17 10/05/17 10/06/17 05:59 05:59 05:59 Intake Total 1933 3895 Output Total 600 2350 Balance 1333 1545 PT 13.8 SEC (12.0-15.0) 10/04/17 04:15 INR 1.04 (0.83-1.16) 10/04/17 04:15 Physical Exam - Physical Exam General Appearance: no apparent distress, obtunded, obese EENT: PERRL/EOMI Neck: supple Respiratory: lungs clear, decreased breath sounds, No respiratory distress, No accessory muscle use, No rales, No rhonchi Cardiac/Chest: regular rate, rhythm, No edema Abdomen: normal bowel sounds, non-tender, soft, No distended Skin: normal color, warm/dry, No cyanosis Lymphatic: no adenopathy Extremities: No pedal edema Neuro/Psych: cognition abnormalities, No abnormal appraiser oil and water II-XII ICD10 Worksheet Patient Problems: Problems Problem Status Onset Pneumonia Acute
[2017-10-05] MEDS: LISINOPRIL 40 MG TAB PO SCH (12:51)
[2017-10-05] MEDS ORDERED: LIDOCAINE 1% 300 MG/30 ML SDV ONE (15:13)
[2017-10-05] MEDS ORDERED: LIDOCAINE 2% JELLY 5 ML TUBE ONE (15:16)
--- NOTE | 2017-10-05 16:37 | ASMTCMCOM ---
CM Note CM Note Notes: Patient remains on the vent. Parents Dionne and Aubrey live in [place] phone# [phone]. Sister and mother may be coming to [place]. Patient in [place] working. CM to talk with family Thursday re: Med Proxy. Date Signed: 10/05/2017 04:36 PM Electronically Signed By:Genesis Bocanegra LCSW
[2017-10-06] MEDS: PROPOFOL/EMULSION 100 ML IV SCH ×9 (02:03→23:46)
[2017-10-06] MEDS: ALBUTEROL 60 PUFFS/8 GM MDI IH SCH ×6 (03:40→23:24)
[2017-10-06] MEDS: fentaNYL/NACL 100 ML IV SCH ×3 (04:40→21:44)
[2017-10-06 05:14] LABS: PLATELET COUNT 229 10^3/uL (150-400)
[2017-10-06] MEDS: LORazepam 2 MG/ML INJ IV SCH ×4 (05:55→23:46)
[2017-10-06] MEDS: NS 1,000 ML IV SCH ×2 (05:58→21:44)
[2017-10-06] MEDS: VECURONIUM BROMIDE IV SCH ×2 (06:30→16:29)
[2017-10-06] MEDS: D5W IV SCH ×2 (06:30→16:29)
[2017-10-06] MEDS: CHLORHEXIDINE GLUCONATE 15 ML UDL PO SCH ×2 (08:24→20:24)
[2017-10-06] MEDS: FAMOTIDINE 20 MG/NACL 50 ML IV SCH ×2 (08:39→20:24)
[2017-10-06] MEDS: ENOXAPARIN 40 MG/0.4 ML SYR SC SCH ×2 (08:39→20:24)
--- NOTE | 2017-10-06 10:16 | HOSPPROG ---
Hospitalist Progress Note Assessment/Plan: # acute hypercapnic and hypoxic resp failure d/t human metapneumovirus; underlying OHS/EDIE - plan for bronch possibly tomorrow with collapsed RLL - s/p bronch 10/04 - cx NGTD - cont mechanical ventilation, sedation, paralytics - doxy and steroids stopped 10/05 - check quant immunoglobulins given degree of illness from hMNV # hypotension (has a history of hypertension) - currently holding meds # etOH abuse - currently on propofol to control withdrawal # morbid obesity - BMI 48 # acute encephalopathy - d/t above # pulmonary nodularity - needs f/t CT in 3-6 months # tobacco use # FEN - cont TF; incr free H2O bolus with hyperNa # ppx - pepcid, lovenox Subjective: no significant change overnight; still on very high O2 needs Objective: Vital Signs Temp Pulse Resp BP Pulse Ox 36.7 C 96 25 H 123/61 H 92 10/06/17 10:00 10/06/17 10:00 10/06/17 10:00 10/06/17 10:00 10/06/17 10:00 Microbiology 10/04/17 15:15 Gram Stain - Final Lung Right Lobe - Bronchial Washings 10/04/17 15:15 Mycobacterial Smear (LARISA) - Final Lung - Bronchial Washings Laboratory Results 10/06/17 04:55 10/06/17 04:55 10/05/17 10/06/17 10/07/17 05:59 05:59 05:59 Intake Total 3895 4294.2 Output Total 2350 1450 Balance 1545 2844.2 PT 13.8 SEC (12.0-15.0) 10/04/17 04:15 INR 1.04 (0.83-1.16) 10/04/17 04:15 35 mins bedside/floor CC time - Physical Exam Constitutional: obese Ears, Nose, Mouth, Throat: other (ET tube, OG tube) Cardiovascular: regular rate and rhythym, no murmur, rub, or gallop Respiratory: other (coarse BS bilat) Gastrointestinal: other (soft) ICD10 Worksheet Patient Problems: Problems Problem Status Onset Pneumonia Acute
--- NOTE | 2017-10-06 14:03 | PDINTPN ---
Building Illuminating Engineer Progress Note Assessment/Plan: Assessment/plan: 42 morbidly obese Lokesh visitng from [place] since Aug admitted 10/01/17 with SOB after self treating "pneumonia" with cipro. He was apparently hypoxic as well at an urgent care. On arrival he was admitted to the floor on 6 lpm NC, and on HD#2 showed signs of etoh withdrawal and admitted to 8-10 vodkas daily so was started on Librium and CIWA protocol. On 10/03 he was somnolent and an ABG showed an acute hypercapnic respiratory failure treated initially with BIPAP. However, by 1799 his ABG was worse and required intubation by anesthesia via glidescope on 1st attempt. His CXR has been fairly unremarkable save for small- moderate pleural effusions, but because of increasing airway pressures was paralyzed and placed on PC ventilation on 10/04. A procalcitonin on 10/05 was unremarkable, and he was switched back to AC. * Acute hypercapnic and hypoxic respiratory failure- the etiology is uncertain to me but may be a combination of sedation, EDIE, bipap failure, and fluid overload. With a low procalcitonin on admission of 0.07, infection seems unlikely, and recheck pending. We have had difficulty with monitoring paralytics as multiple attempts at TOF have produced nothing. However, when he is able to move spontaneously, he develops respiratory distress. Today we attempted rolling to right side which resulted in desat and worse when rolled to left. Needed brief bagging followed by bronch which showed large mucous plug in SABINE and small in LLL (both removed and dictated separately). Held steroids yesterday, but may resume depending on course. Prior to event, was ablke to reduce FiO2 to 80% with 10 peep and maintain sats. recheck ABG/CXR in AM. * ETOH wd- impossible to evaluate under the current circumstances. Watch for signs of WD and continue with thiamine, MVI. * COPD? he is a bit young to develop significant COPD and does not have asthma in his PMH. Will check with family when they arrive. * HTN- stable for now. * * * critical care time 65 minutes including bedside eval, chart review and discussion with multiple providers and separate from procedures 10/06/17 13:58 Subjective: called urgently to bedside for hypoxemia Objective: Vital Signs Temp Pulse Resp BP Pulse Ox 36.9 C 97 25 H 117/61 88 L 03/20/18 12:00 10/06/17 12:00 10/06/17 12:00 10/06/17 12:00 10/06/17 12:00 Microbiology 10/04/17 15:15 Gram Stain - Final Lung Right Lobe - Bronchial Washings 10/04/17 15:15 Mycobacterial Smear (LARISA) - Final Lung - Bronchial Washings Laboratory Results 10/06/17 04:55 10/06/17 04:55 10/05/17 10/06/17 10/07/17 05:59 05:59 05:59 Intake Total 3895 4294.2 Output Total 2350 1450 Balance 1545 2844.2 PT 13.8 SEC (12.0-15.0) 10/04/17 04:15 INR 1.04 (0.83-1.16) 10/04/17 04:15 Physical Exam - Physical Exam General Appearance: no apparent distress, obtunded, obese, other (paralyzed, sedated) EENT: PERRL/EOMI, ET tube Neck: supple Respiratory: rhonchi (pre-bronch), No respiratory distress, No accessory muscle use Cardiac/Chest: regular rate, rhythm, No edema Abdomen: non-tender, soft, No distended Skin: normal color, warm/dry, No cyanosis Lymphatic: no adenopathy Extremities: No pedal edema Neuro/Psych: cognition abnormalities, other (sedated on vent) ICD10 Worksheet Patient Problems: Problems Problem Status Onset Pneumonia Acute
[2017-10-06] MEDS: PETROLAT,WHT/MIN OIL/SOD CHL 3.5 GM OPHT.OINT EACHEYE PRN ×2 (15:36→23:50)
--- NOTE | 2017-10-06 20:04 | GPN ---
[f rep st] PROCEDURE NOTE DATE OF PROCEDURE: 10/05/2017 PROCEDURE PERFORMED: Bronchoscopy. INDICATION: Abnormal chest x-ray. CONSENT: Consent was waived due to the emergent nature of the procedure. ANESTHESIA: No conscious sedation was required, as the patient is mechanically ventilated, paralyzed , and sedated. DESCRIPTION OF PROCEDURE: The bronchoscope was easily passed through the existing endotracheal tube. There were minimal secretions in the right lower lobe, but no endobronchial lesions. The patient h ad been having difficulty with decreased tidal volumes for uncertain reasons, and we were looking for evidence of mucus plugging, which we did not find today. The patient tolerated the procedure well. There were no complications. /[id number]/MODL
--- NOTE | 2017-10-06 20:09 | GPN ---
[f rep st] PROCEDURE NOTE DATE OF PROCEDURE: 10/06/2017 INDICATION: Hypoxemia and worsening infiltrates on chest x-ray. CONSENT: Consent was waived due to the emergent nature of the procedure. ANESTHESIA: Next, sedation was not required as the patient was mechanically ventilated, sedated, and paralyzed. DESCRIPTION OF PROCEDURE: The bronchoscope was easily passed through the existing endotracheal tube to find large mucus plugging in the right mainstem bronchus. This was removed with multiple passes a nd installations of normal saline. The patient tolerated this well and this was cleaned down to the level of the segments of the right lower lobe. Right upper lobe also had mucus plugs in it, though m ucus was somewhat thick and sticky and tenacious, but was able to be cleared after multiple attempts. We also went down the left side and found minimal secretions in the left lower lobe, as well as the superior segment of the left lower lobe. These were also easily removed. The endotracheal tube was in good position. The patient tolerated this well and there were no complications. /[id number]/MODL
[2017-10-07] MEDS: PROPOFOL/EMULSION 100 ML IV SCH ×7 (02:56→20:40)
[2017-10-07] MEDS: ALBUTEROL 60 PUFFS/8 GM MDI IH SCH ×6 (04:44→23:48)
[2017-10-07] MEDS: LORazepam 2 MG/ML INJ IV SCH ×2 (05:33→11:42)
[2017-10-07 05:36] LABS: PLATELET COUNT 228 10^3/uL (150-400)
[2017-10-07] MEDS: D5W IV SCH ×2 (07:38→16:47)
[2017-10-07] MEDS: CHLORHEXIDINE GLUCONATE 15 ML UDL PO SCH ×2 (07:38→20:41)
[2017-10-07] MEDS: VECURONIUM BROMIDE IV SCH ×2 (07:38→16:47)
[2017-10-07] MEDS: PETROLAT,WHT/MIN OIL/SOD CHL 3.5 GM OPHT.OINT EACHEYE PRN ×3 (07:40→20:40)
[2017-10-07] MEDS: ENOXAPARIN 40 MG/0.4 ML SYR SC SCH ×2 (08:18→20:41)
[2017-10-07] MEDS: FAMOTIDINE 20 MG/NACL 50 ML IV SCH ×2 (08:18→20:41)
[2017-10-07] MEDS: fentaNYL/NACL 100 ML IV SCH ×2 (08:18→17:23)
[2017-10-07] MEDS: NS 1,000 ML IV SCH (11:41)
[2017-10-07] MEDS ORDERED: FUROSEMIDE 100 MG/10 ML VIAL IV ONE (11:45)
--- NOTE | 2017-10-07 11:55 | HOSPPROG ---
Hospitalist Progress Note Assessment/Plan: # acute hypercapnic and hypoxic resp failure d/t human metapneumovirus; underlying OHS/EDIE - s/p bronch yesterday - s/p bronch 10/04 - cx NGTD - cont mechanical ventilation, sedation, paralytics - doxy and steroids stopped 10/05 - check quant immunoglobulins given degree of illness from hMNV # volume status - difficult - will diurese with lasix 60 iv today; hold NS - attempt to run negative # hypotension (has a history of hypertension) - currently holding meds # etOH abuse - currently on propofol to control withdrawal # morbid obesity - BMI 48 # acute encephalopathy - d/t above # pulmonary nodularity - needs f/t CT in 3-6 months # tobacco use # FEN - cont TF; incr free H2O bolus with hyperNa # ppx - pepcid, lovenox Subjective: no significant change Objective: Vital Signs Temp Pulse Resp BP Pulse Ox 37.3 C 91 25 H 114/61 93 10/07/17 11:00 10/07/17 11:00 10/07/17 11:00 10/07/17 11:00 10/07/17 11:00 Microbiology 10/01/17 20:53 Blood Culture - Final Blood 10/01/17 20:36 Blood Culture - Final Blood 10/04/17 15:15 Gram Stain - Final Lung Right Lobe - Bronchial Washings 10/04/17 15:15 Mycobacterial Smear (LARISA) - Final Lung - Bronchial Washings Laboratory Results 10/07/17 05:20 10/07/17 05:20 10/06/17 10/07/17 10/08/17 05:59 05:59 05:59 Intake Total 4294.2 4085 Output Total 1450 1400 Balance 2844.2 2685 PT 13.8 SEC (12.0-15.0) 10/04/17 04:15 INR 1.04 (0.83-1.16) 10/04/17 04:15 CXR personally reviewed patient remains critically ill with severe hypoxia; 30 mins floor CC time ICD10 Worksheet Patient Problems: Problems Problem Status Onset Pneumonia Acute
--- NOTE | 2017-10-07 12:33 | PDINTPN ---
Director Information Progress Note Assessment/Plan: Assessment/plan: 42 morbidly obese Lokesh visitng from [place] since Aug admitted 10/01/17 with SOB after self treating "pneumonia" with cipro. He was apparently hypoxic as well at an urgent care. On arrival he was admitted to the floor on 6 lpm NC, and on HD#2 showed signs of etoh withdrawal and admitted to 8-10 vodkas daily so was started on Librium and CIWA protocol. On 10/03 he was somnolent and an ABG showed an acute hypercapnic respiratory failure treated initially with BIPAP. However, by 1799 his ABG was worse and required intubation by anesthesia via glidescope on 1st attempt. His CXR has been fairly unremarkable save for small- moderate pleural effusions, but because of increasing airway pressures was paralyzed and placed on PC ventilation on 10/04. A procalcitonin on 10/05 was unremarkable, and he was switched back to AC. * Acute hypercapnic and hypoxic respiratory failure- the etiology is uncertain to me but may be a combination of sedation, EDIE, bipap failure, and fluid overload. With a low procalcitonin on admission of 0.07, infection seems unlikely, and recheck was also low. Needed brief bagging followed by bronch which showed large mucous plug in SABINE and small in LLL (both removed and dictated separately). Held steroids 10/05, but may resume depending on course, though he lacks a history of copd or asthma. ABG this am showed marginal pO2 (59 ) so RT increased FiO2. I dont think he is an ECMO candidate since Im not sure his predicted mortality is >50%. Trial of lasix toda * ETOH wd- impossible to evaluate under the current circumstances. Watch for signs of WD and continue with thiamine, MVI. * COPD? he is a bit young to develop significant COPD and does not have asthma in his PMH. family confirms. * HTN- stable for now. * * * critical care time 45 minutes including bedside eval, chart review and discussion with multiple providers and separate from procedures 10/06/17 13:58 10/07/17 12:07 10/07/17 12:34 Subjective: s/p successful bronch yesterday. Objective: Vital Signs Temp Pulse Resp BP Pulse Ox 37.3 C 91 25 H 114/61 93 10/07/17 11:00 10/07/17 11:00 10/07/17 11:00 10/07/17 11:00 10/07/17 11:00 Microbiology 10/01/17 20:53 Blood Culture - Final Blood 10/01/17 20:36 Blood Culture - Final Blood 10/04/17 15:15 Gram Stain - Final Lung Right Lobe - Bronchial Washings 10/04/17 15:15 Mycobacterial Smear (LARISA) - Final Lung - Bronchial Washings Laboratory Results 10/07/17 05:20 10/07/17 05:20 10/06/17 10/07/17 10/08/17 05:59 05:59 05:59 Intake Total 4294.2 4085 Output Total 1450 1400 Balance 2844.2 2685 PT 13.8 SEC (12.0-15.0) 10/04/17 04:15 INR 1.04 (0.83-1.16) 10/04/17 04:15 Physical Exam - Physical Exam General Appearance: obtunded EENT: PERRL/EOMI, ET tube Neck: supple Respiratory: crackles, rhonchi, No respiratory distress, No accessory muscle use Cardiac/Chest: regular rate, rhythm, edema Abdomen: non-tender, soft, No distended Skin: normal color, warm/dry, No cyanosis Lymphatic: no adenopathy Extremities: pedal edema Neuro/Psych: No abnormal 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
--- NOTE | 2017-10-07 16:05 | ASMTCMCOM ---
CM Note CM Note Notes: Patient's mother arrived today from [place]. She met with Javascript Developer and brought living will and [facility] paperwork. She is MDPOA, and patient's sister Clara is alternate. Case Managment will meet with patient's mother tomorrow to discuss discharge planning. Date Signed: 10/07/2017 04:04 PM Electronically Signed By:Amaris Llanos RN
[2017-10-08] MEDS: PROPOFOL/EMULSION 100 ML IV SCH ×10 (00:14→21:47)
[2017-10-08] MEDS: VECURONIUM BROMIDE IV SCH (02:49)
[2017-10-08] MEDS: D5W IV SCH (02:49)
[2017-10-08] MEDS: fentaNYL/NACL 100 ML IV SCH ×3 (02:49→18:24)
[2017-10-08] MEDS: ALBUTEROL 60 PUFFS/8 GM MDI IH SCH ×6 (04:04→23:48)
[2017-10-08 05:01] LABS: PLATELET COUNT 251 10^3/uL (150-400)
[2017-10-08] MEDS: FAMOTIDINE 20 MG/NACL 50 ML IV SCH ×2 (08:20→21:14)
[2017-10-08] MEDS: CHLORHEXIDINE GLUCONATE 15 ML UDL PO SCH ×2 (08:21→21:16)
[2017-10-08] MEDS: ENOXAPARIN 40 MG/0.4 ML SYR SC SCH ×2 (08:21→21:15)
[2017-10-08] MEDS ORDERED: LACTULOSE 20 GM/30 ML UDCUP PO PRN (09:38)
[2017-10-08] MEDS ORDERED: BISACODYL 10 MG SUPP PR PRN (09:38)
[2017-10-08] MEDS ORDERED: MAGNESIUM HYDROXIDE 30 ML UDCUP PO PRN (09:38)
--- NOTE | 2017-10-08 11:10 | HOSPPROG ---
Hospitalist Progress Note Assessment/Plan: # acute hypercapnic and hypoxic resp failure d/t human metapneumovirus; underlying OHS/EDIE - s/p bronch 10/07, bronch 10/04 - cx NGTD - cont mechanical ventilation, sedation, off paralytics currently - doxy and steroids stopped 10/05 - IgG mildly low - unclear if this is clinically significant # volume status - difficult - 7L neg yesterday - cont lasix today - watch for worsening contraction alkalosis - may add acetazolamide # hypotension (has a history of hypertension) - currently holding meds # etOH abuse - currently on propofol to control withdrawal # morbid obesity - BMI 48 # acute encephalopathy - d/t above # pulmonary nodularity - needs f/t CT in 3-6 months # tobacco use # FEN - cont TF; incr free H2O bolus with hyperNa # ppx - pepcid, lovenox Subjective: paralytics off this morning - opening his eyes to voice Objective: Vital Signs Temp Pulse Resp BP Pulse Ox 37.5 C 88 25 H 132/70 H 92 10/08/17 10:00 10/08/17 10:00 10/08/17 10:00 10/08/17 10:00 10/08/17 10:00 Microbiology 10/04/17 15:15 Gram Stain - Final Lung Right Lobe - Bronchial Washings Bronchial Washings Culture - Final 10/01/17 20:53 Blood Culture - Final Blood 10/01/17 20:36 Blood Culture - Final Blood Laboratory Results 10/08/17 04:45 10/08/17 04:45 10/07/17 10/08/17 10/09/17 05:59 05:59 05:59 Intake Total 4085 2988 Output Total 1400 7250 Balance 2685 -4251 PT 13.8 SEC (12.0-15.0) 10/04/17 04:15 INR 1.04 (0.83-1.16) 10/04/17 04:15 critically ill requiring high ventilator settings; 35 mins floor CC time - Physical Exam Constitutional: obese Cardiovascular: regular rate and rhythym, no murmur, rub, or gallop Respiratory: other (coarse BS throughout) Gastrointestinal: soft, non-tender abdomen, no palpable masses Neurologic: other (opens eyes to voice) ICD10 Worksheet Patient Problems: Problems Problem Status Onset Pneumonia Acute
[2017-10-08] MEDS ORDERED: FUROSEMIDE 40 MG/4 ML VIAL IVP ONE (11:15)
[2017-10-08] MEDS: POLYETHYLENE GLYCOL 3350 17 GM PKT PO PRN (11:56)
--- NOTE | 2017-10-08 12:16 | PDINTPN ---
Trimmer Sorter Progress Note Assessment/Plan: Assessment/plan: 42 morbidly obese Lokesh visitmegan from [place] since Aug admitted 10/01/17 with SOB after self treating "pneumonia" with cipro. He was apparently hypoxic as well at an urgent care. On arrival he was admitted to the floor on 6 lpm NC, and on HD#2 showed signs of etoh withdrawal and admitted to 8-10 vodkas daily so was started on Librium and CIWA protocol. On 10/03 he was somnolent and an ABG showed an acute hypercapnic respiratory failure treated initially with BIPAP. However, by 1799 his ABG was worse and required intubation by anesthesia via glidescope on 1st attempt. His CXR has been fairly unremarkable save for small- moderate pleural effusions, but because of increasing airway pressures was paralyzed and placed on PC ventilation on 10/04. A procalcitonin on 10/05 was unremarkable, and he was switched back to AC. * Acute hypercapnic and hypoxic respiratory failure- the etiology is uncertain to me but may be a combination of sedation, EDIE, bipap failure, and fluid overload, and a possible contribution from hMPV. With a low procalcitonin on admission of 0.07, infection seems unlikely, and recheck was also low. Needed brief bagging followed by bronch 10/06 which showed large mucous plug in SABINE and small in LLL (both removed and dictated separately). Held steroids 10/05; he lacks a history of copd or asthma. Continues to have marginal improvements, perhaps related to lasix. Additional dose given today and will trial off paralytics. * ETOH wd- impossible to evaluate under the current circumstances. Watch for signs of WD and continue with thiamine, MVI; thouhg very unlikely at this point in his hospital stay. * HTN- stable for now. * * * critical care time 35 minutes including bedside eval, chart review and discussion with multiple providers and separate from procedures Subjective: Stable overnight with successful diuresis Objective: Vital Signs Temp Pulse Resp BP Pulse Ox 37.6 C 94 25 H 113/58 L 86 L 10/08/17 11:00 10/08/17 11:25 10/08/17 11:25 10/08/17 11:00 10/08/17 11:25 Microbiology 10/04/17 15:15 Gram Stain - Final Lung Right Lobe - Bronchial Washings Bronchial Washings Culture - Final 10/01/17 20:53 Blood Culture - Final Blood 10/01/17 20:36 Blood Culture - Final Blood Laboratory Results 10/08/17 04:45 10/08/17 04:45 10/07/17 10/08/17 10/09/17 05:59 05:59 05:59 Intake Total 4085 2988 Output Total 1400 7250 Balance 2685 -4262 PT 13.8 SEC (12.0-15.0) 10/04/17 04:15 INR 1.04 (0.83-1.16) 10/04/17 04:15 Physical Exam - Physical Exam General Appearance: no apparent distress, obtunded, obese EENT: PERRL/EOMI Neck: supple Respiratory: lungs clear, No respiratory distress, No accessory muscle use Cardiac/Chest: regular rate, rhythm, No edema Abdomen: non-tender, soft, No distended Skin: normal color, warm/dry, No cyanosis Lymphatic: no adenopathy Extremities: No pedal edema Neuro/Psych: cognition abnormalities, other (sedated on vent) ICD10 Worksheet Patient Problems: Problems Problem Status Onset Pneumonia Acute
[2017-10-08] MEDS ORDERED: acetaZOLAMIDE 250 MG in SYRINGE 0 ML IVP ONE (12:58)
--- NOTE | 2017-10-08 13:40 | ASMTCMCOM ---
CM Note CM Note Notes: Case reviewed during rounds. Patient is intubated and sedated. Met with Ekta, his mom and POA to provide support. She tell me he was unwell prior to traveling to [place] for work. CM to follow to determine his needs at discharge. Date Signed: 10/08/2017 01:39 PM Electronically Signed By:Rajani Kasper RN
[2017-10-08] MEDS ORDERED: LORazepam 2 MG/ML INJ IVP SCH (14:15)
[2017-10-08] MEDS ORDERED: LORazepam 2 MG/ML INJ IVP ONE (14:15)
[2017-10-08] MEDS: LORazepam 2 MG/ML INJ IVP SCH (18:11)
[2017-10-08] MEDS ORDERED: ACETAMINOPHEN 650 MG/20.3 ML UDCUP TUBE PRN (18:16)
[2017-10-08] MEDS: SENNOSIDES/DOCUSATE SODIUM TAB PO SCH (21:17)
[2017-10-09] MEDS: PROPOFOL/EMULSION 100 ML IV SCH ×9 (00:06→22:14)
[2017-10-09] MEDS: LORazepam 2 MG/ML INJ IVP SCH ×4 (00:07→18:00)
[2017-10-09] MEDS: fentaNYL/NACL 100 ML IV SCH ×3 (00:29→19:24)
[2017-10-09] MEDS: ALBUTEROL 60 PUFFS/8 GM MDI IH SCH ×6 (03:59→23:43)
[2017-10-09 05:11] LABS: PLATELET COUNT 329 10^3/uL (150-400)
[2017-10-09] MEDS: CHLORHEXIDINE GLUCONATE 15 ML UDL PO SCH (09:08)
[2017-10-09] MEDS: SENNOSIDES/DOCUSATE SODIUM TAB PO SCH ×2 (09:08→21:48)
[2017-10-09] MEDS: FAMOTIDINE 20 MG/NACL 50 ML IV SCH ×2 (09:08→21:48)
[2017-10-09] MEDS: ENOXAPARIN 40 MG/0.4 ML SYR SC SCH ×2 (09:08→21:48)
--- NOTE | 2017-10-09 12:29 | PDINTPN ---
[facility] Progress Note Assessment/Plan: Assessment/plan: 42 morbidly obese Lokesh visitmegan from [place] since Aug admitted 10/01/17 with SOB after self treating "pneumonia" with cipro. He was apparently hypoxic as well at an urgent care. On arrival he was admitted to the floor on 6 lpm NC, and on HD#2 showed signs of etoh withdrawal and admitted to 8-10 vodkas daily so was started on Librium and CIWA protocol. On 10/03 he was somnolent and an ABG showed an acute hypercapnic respiratory failure treated initially with BIPAP. However, by 1800 his ABG was worse and required intubation by anesthesia via glidescope on 1st attempt. His CXR has been fairly unremarkable save for small- moderate pleural effusions, but because of increasing airway pressures was paralyzed and placed on PC ventilation on 10/04. A procalcitonin on 10/05 was unremarkable, and he was switched back to AC. * Acute hypercapnic and hypoxic respiratory failure- the etiology is uncertain to me but may be a combination of sedation, EDIE, bipap failure, and fluid overload, and a possible contribution from hMPV. No aspiration reported, though bipap is a risk. With a low procalcitonin on admission of 0.07, infection seems unlikely, and recheck was also low x 2 more. Large mucous plug in SABINE and small in LLL (both removed and dictated separately) on 10/05. Held steroids 10/05; he lacks a history of copd or asthma. Continues to have marginal improvements, perhaps related to lasix. Paralytics dc'd 10/08. HD#8, vent day #6. Massive obesity precludes proning and not an ECMO candidate since mortality not thought to be >50% at this point. May need eventual trach. Will rebronch today, and incerased peep to 15 without excess PIP. Chest CTA not unreasonable, though negative on admission (poor film); getting lovenox and bilateral US negative . * ETOH wd- considered early in hospital stay but not likely a factor at all currently. * HTN- stable for now. * Rash- bilateral erythematous rash, non-blanching where SCDs were. observe * * critical care time 45 minutes including bedside eval, chart review and discussion with multiple providers and separate from procedures 10/09/17 12:07 Subjective: easily desaturates with turning Objective: Vital Signs Temp Pulse Resp BP Pulse Ox 37.4 C 93 20 140/84 H 91 L 10/09/17 10:00 10/09/17 10:00 10/09/17 10:00 10/09/17 10:00 10/09/17 10:00 Laboratory Results 10/09/17 05:00 10/09/17 05:00 10/08/17 10/09/17 10/10/17 05:59 05:59 05:59 Intake Total 2988 2287.1 Output Total 7250 4250 Balance -4262 -1962.9 PT 13.8 SEC (12.0-15.0) 10/04/17 04:15 INR 1.04 (0.83-1.16) 10/04/17 04:15 Physical Exam - Physical Exam General Appearance: no apparent distress, obtunded EENT: PERRL/EOMI, ET tube Neck: supple Respiratory: rhonchi, No respiratory distress, No accessory muscle use Cardiac/Chest: regular rate, rhythm, No edema Abdomen: non-tender, soft, No distended Skin: normal color, warm/dry, No cyanosis Lymphatic: no adenopathy Extremities: No pedal edema Neuro/Psych: cognition abnormalities ICD10 Worksheet Patient Problems: Problems Problem Status Onset Pneumonia Acute
[2017-10-09] MEDS ORDERED: LIDOCAINE 1% 300 MG/30 ML SDV MISC ONE ×2 (12:38→13:23)
--- NOTE | 2017-10-09 13:22 | ASMTCMCOM ---
CM Note CM Note Notes: No significant changes in patient status. Bronchoscopy later today. Still requiring significant resipratory support. Mother at bedside. Too sick for therapy at this point. His mother is his acting health care surrogate. CM to follow. Date Signed: 10/09/2017 01:21 PM Electronically Signed By:Rajani Kasper RN
--- NOTE | 2017-10-09 14:04 | GPN ---
[f rep st] PROCEDURE NOTE DATE OF PROCEDURE: 10/09/2017 PROCEDURE: Bronchoscopy. INDICATION: Hypoxemia and increasing atelectasis on chest x-ray. CONSENT: Informed consent was obtained from the patient's mother verbally prior to the administratio n of anesthesia. The risks and benefits of the procedure were explained in detail. She agreed to pr oceed. SEDATION: Conscious sedation was achieved using a 10 mL propofol bolus. The patient was vented and already on a propofol drip as well as fentanyl at this time. Additional topical anesthesia was used with 1% lidocaine. DESCRIPTION OF PROCEDURE: The bronchoscope was easily passed through the existing endotracheal tube. The trachea appeared to be normal. The fredy was sharp. There were no significant mucous plugs i n the main airways. There was some clear mucus seen in the right lower lobe but no significant plugg ing or mucosal abnormalities and certainly no endobronchial lesions. Attention was also drawn to the left side, where similar findings were. Overall, the bronchoscopy was fairly unremarkable. There w ere no specimens kept for culture. Overall, the patient tolerated procedure well. There were no com plications. /[id number]/MODL
--- NOTE | 2017-10-09 14:14 | HOSPPROG ---
Hospitalist Progress Note Assessment/Plan: # acute hypercapnic and hypoxic resp failure d/t human metapneumovirus; underlying OHS/EDIE - check CTA, echo with bubbles - trial high dose steroids - check BENJY, ANCA, ESR, CRP - s/p bronch 10/07, bronch 10/04 - cx NGTD - cont mechanical ventilation, sedation, off paralytics currently - doxy and steroids stopped 10/05 - IgG mildly low - unclear if this is clinically significant # dark urine - send UA; active sediment? # leg erythema - possible venous stasis vs contact dermatitis - trial of topical steroids # volume status - difficult - holding diuresis today, unclear if this was helping and he has a contraction alkalosis # hypotension (has a history of hypertension) - currently holding meds # etOH abuse - currently on propofol to control withdrawal # morbid obesity - BMI 48 # acute encephalopathy - d/t above # pulmonary nodularity - needs f/u CT in 3-6 months # tobacco use # FEN - cont TF; incr free H2O bolus with hyperNa # ppx - pepcid, lovenox Subjective: no significant change Objective: Vital Signs Temp Pulse Resp BP Pulse Ox 37.5 C 91 25 H 140/86 H 94 10/09/17 13:00 10/09/17 13:00 10/09/17 13:00 10/09/17 13:00 10/09/17 13:00 Laboratory Results 10/09/17 05:00 10/09/17 05:00 10/08/17 10/09/17 10/10/17 05:59 05:59 05:59 Intake Total 2988 2287.1 Output Total 7217 4250 Balance -4262 -1962.9 PT 13.8 SEC (12.0-15.0) 10/04/17 04:15 INR 1.04 (0.83-1.16) 10/04/17 04:15 45 mins of bedside and floor CC time managing hypoxia requiring mechanical ventilation - Physical Exam Constitutional: obese Cardiovascular: regular rate and rhythym, no murmur, rub, or gallop Respiratory: no respiratory distress, no rales or rhonchi Gastrointestinal: soft, non-tender abdomen, No tenderness, No ascites, No distension ICD10 Worksheet Patient Problems: Problems Problem Status Onset Pneumonia Acute
--- NOTE | 2017-10-09 14:25 | WOCRNPDOC ---
WOCRN Advanced Assessment Note - Skin Integrity Problem, Advanced Assess Bilateral Lower Leg Dressing Type: Open to Air Exudate Amount: None Exudate Characteristic(s): None Ailyn Wound Tissue: Erythema Marked by Wound RN Skin Integrity Problem Comment: Consult request to evaluate erythema on patient' s bilateral lower extremities. Well-defined erythema over both lower legs w/ distinct margins, no rash or plaques evident. Skin blanching throughout, not a pressure-related injury. Erythema marked by this author after sign poster Tran reported that redness had increased since it was first observed this morning. No significant edema or swelling observed. Will have nursing continue to monitor. As patient does not have a wound, will sign off for now. Please reconsult as needed.
[2017-10-09] MEDS: HYDROCORTISONE 2.5% 30 GM CRTUBE TP SCH (15:31)
[2017-10-09] MEDS: methylPREDNISolone SOD SUCC 125 MG/2 ML VIAL IVP SCH (18:00)
[2017-10-10] MEDS: LORazepam 2 MG/ML INJ IVP SCH ×4 (00:01→18:04)
[2017-10-10] MEDS: methylPREDNISolone SOD SUCC 125 MG/2 ML VIAL IVP SCH ×5 (00:01→23:56)
[2017-10-10] MEDS: fentaNYL/NACL 100 ML IV SCH ×4 (01:24→19:50)
[2017-10-10] MEDS: PROPOFOL/EMULSION 100 ML IV SCH ×12 (01:48→23:56)
[2017-10-10] MEDS: CHLORHEXIDINE GLUCONATE 15 ML UDL PO SCH ×3 (03:10→21:02)
[2017-10-10] MEDS: ALBUTEROL 60 PUFFS/8 GM MDI IH SCH ×6 (04:15→23:14)
[2017-10-10 05:04] LABS: PLATELET COUNT 397 10^3/uL (150-400)
[2017-10-10] MEDS: ENOXAPARIN 40 MG/0.4 ML SYR SC SCH ×2 (08:23→21:02)
[2017-10-10] MEDS: FAMOTIDINE 20 MG/NACL 50 ML IV SCH ×2 (08:23→21:02)
[2017-10-10] MEDS: SENNOSIDES/DOCUSATE SODIUM TAB PO SCH ×2 (08:24→21:03)
[2017-10-10] MEDS: HYDROCORTISONE 2.5% 30 GM CRTUBE TP SCH ×2 (08:39→21:35)
--- NOTE | 2017-10-10 10:00 | ECHO ---
[email or web address] [address] Main: [phone] Fax: Transthoracic Echocardiogram Name: MAXWELL LING MR#: [id number] Study Date: 10/09/2017 Study Time: 02:33 PM Date of : 1975 Age: 42 year(s) Height: ( ) Weight: ( ) BSA: Gender: Male Examination: Limited Echo with Agitated Saline Indication: limited f/u echo with bubble study to rule out shunt due to persistent hypoxia Image Quality: Technically Difficult Contrast: I.V. dose of agitated saline Requested by: Sahil Quevedo BP: / Heart Rate: Rhythm: Indication: limited f/u echo with bubble study to rule out shunt due to persistent hypoxia Procedure Staff Data Control Clerk Supervisor: Tara Wilhelm [facility] Reading Physician: Cj Dominguez MD Requesting Provider: Elidia Atwood Conclusions: Negative bubble study Measurements: Chambers Valvular Assessment AV/MV Valvular Assessment TV/PV Normal Normal Normal Name Value Range Name Value Range Name Value Range Continued Measurements: Findings: Left Ventricle: Grossly normal left ventricular size and function.. Left Atrium: Agitated saline contrast admininistered to rule out shunt. Limited visualization due to poor acoustic window and patient on a ventilator. No obvious large intracardiac right to left intracardiac shunt. . (No Signature Object) Patient: MAXWELL LING Study Date: 10/09/2017 Page 1 of 1 02:33 PM [id number]
[2017-10-10] MEDS: FUROSEMIDE 20 MG/2 ML VIAL IV SCH ×2 (10:37→21:02)
[2017-10-10] MEDS: METOCLOPRAMIDE 10 MG/2 ML VIAL IV SCH ×3 (10:37→21:03)
--- NOTE | 2017-10-10 11:37 | PDINTPN ---
[facility] Progress Note Assessment/Plan: Assessment/plan: 42 morbidly obese Lokesh visitmegan from [place] since Aug admitted 10/01/17 with SOB after self treating "pneumonia" with cipro. He was apparently hypoxic as well at an urgent care. On arrival he was admitted to the floor on 6 lpm NC, and on HD#2 showed signs of etoh withdrawal and admitted to 8-10 vodkas daily so was started on Librium and CIWA protocol. On 10/03 he was somnolent and an ABG showed an acute hypercapnic respiratory failure treated initially with BIPAP. However, by 1799 his ABG was worse and required intubation by anesthesia via glidescope on 1st attempt. His CXR has been fairly unremarkable save for small- moderate pleural effusions, but because of increasing airway pressures was paralyzed and placed on PC ventilation on 10/04. A procalcitonin on 10/05 was unremarkable, and he was switched back to AC. * Acute hypercapnic and hypoxic respiratory failure- the etiology is uncertain to me but may be a combination of sedation, EDIE, bipap failure, and fluid overload, and a possible contribution from hMPV. No aspiration reported, though bipap is a risk. With a low procalcitonin on admission of 0.07, infection seems unlikely, and recheck was also low x 2 more. Large mucous plug in SABINE and small in LLL (both removed and dictated separately) on 10/05. Held steroids 10/05; he lacks a history of copd or asthma. Continues to have marginal improvements, perhaps related to lasix. Paralytics dc'd 10/08. HD#9, vent day #7. Massive obesity precludes proning and not an ECMO candidate since mortality not thought to be >50% at this point. May need eventual trach. No significant secretions seen on bronch 10/09 and able to reduce FiO2 to 80% today. Too unstable for CTA at this point and yield is low. Resarted steroids (for? ARDS), continue with low dose lasix as tolerated. * ETOH wd- considered early in hospital stay but not likely a factor at all currently. * HTN- stable for now. * Rash- bilateral erythematous rash, non-blanching where SCDs were. observe * * critical care time 45 minutes including bedside eval, chart review and discussion with multiple providers and separate from procedures 10/09/17 12:07 10/10/17 11:34 Subjective: no events; easily desats with movement Objective: Vital Signs Temp Pulse Resp BP Pulse Ox 36.8 C 80 25 H 150/79 H 89 L 10/10/17 10:00 10/10/17 10:00 10/10/17 10:00 10/10/17 10:00 10/10/17 10:00 Laboratory Results 10/10/17 04:45 10/10/17 04:45 10/09/17 10/10/17 10/11/17 05:59 05:59 05:59 Intake Total 2287.1 1507 Output Total 4250 2450 Balance -1962.9 -943 PT 13.8 SEC (12.0-15.0) 10/04/17 04:15 INR 1.04 (0.83-1.16) 10/04/17 04:15 Physical Exam - Physical Exam General Appearance: no apparent distress, obtunded, obese EENT: PERRL/EOMI, ET tube Neck: supple Respiratory: lungs clear, decreased breath sounds, No respiratory distress, No accessory muscle use Cardiac/Chest: regular rate, rhythm, No edema Abdomen: non-tender, soft, No distended Skin: warm/dry, rash (bilateral distal LEs), No cyanosis Extremities: No pedal edema Neuro/Psych: cognition abnormalities, other (vent) ICD10 Worksheet Patient Problems: Problems Problem Status Onset Pneumonia Acute
[2017-10-10] MEDS: POLYETHYLENE GLYCOL 3350 17 GM PKT PO PRN (16:07)
--- NOTE | 2017-10-10 16:42 | HOSPPROG ---
Hospitalist Progress Note Assessment/Plan: Subjective Follow-up on acute hypercapnic and hypoxic respiratory failure Patient remains intubated in eating relatively high amount of oxygen. Patient is sedated and not interactive at this time. His case was reviewed with Dr. Garcia with pulmonary critical care medicine today. His mother was also present at the bedside today and she was updated on current status. 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 His home is in [place]. Objective vital signs temperature 36.8 blood pressure 150/79 heart rate 80 respirations 25 satting 89% with an FiO2 of 100% on the ventilator Exam General-patient appears comfortable he is sedated. Heart-regular no murmurs appreciated. Lungs no significant wheezing appreciated. Abdomen-obese soft hypoactive bowel sounds. Extremities-trace pitting edema both lower extremities level of the ankle. Skin-erythematous on rash which is nonblanching in both lower extremities in the distribution of the heel cushions he was wearing previously there is not appear to be any expanding erythema. Labs As detailed below Assessment plan 1. Acute hypercapnic and hypoxic respiratory failure-suspecting secondary to possible viral process. Continue per recommendations by Dr. Garcia. Continue with current Solu-Medrol and Lasix. His chest x-ray suggests some improvement from today. 2. Leg erythema-this may be some reaction from the heel cushion of material. It seems to be in the same distribution. There is not appear to be any expanding erythema at this time. They are warm to touch. Next tobacco use- consider nicotine patch once patient off sedation. 3. Alcohol use disorder-patient is currently sedated. We may need to use p.r.n. Lorazepam once the patient is weaning off of sedation. 4. Pulmonary nodule-this will need outpatient follow-up in 3-6 months 5. DVT prophylaxis-continue current Lovenox. 6. Bowel and bladder-continue current Pepcid for stress ulcer prophylaxis as well as MiraLax and lactulose for bowel regimen. 7. Disposition-we will need to see how patient does with PT and OT once wean from the vent but likely would need some short-term rehabilitation. Objective: Vital Signs Temp Pulse Resp BP Pulse Ox 36.9 C 86 22 H 144/74 H 91 L 10/10/17 15:00 10/10/17 15:33 10/10/17 15:33 10/10/17 15:00 10/10/17 15:33 Laboratory Results 10/10/17 04:45 10/10/17 04:45 10/09/17 10/10/17 10/11/17 05:59 05:59 05:59 Intake Total 2287.1 1507 Output Total 4250 2450 Balance -1962.9 -943 PT 13.8 SEC (12.0-15.0) 10/04/17 04:15 INR 1.04 (0.83-1.16) 10/04/17 04:15 ICD10 Worksheet Patient Problems: Problems Problem Status Onset Pneumonia Acute
[2017-10-10] MEDS: LORazepam 2 MG/ML INJ IVP PRN (21:02)
[2017-10-11] MEDS: PROPOFOL/EMULSION 100 ML IV SCH ×11 (01:10→23:18)
[2017-10-11] MEDS: fentaNYL/NACL 100 ML IV SCH ×4 (01:10→23:18)
[2017-10-11] MEDS: LORazepam 2 MG/ML INJ IVP PRN ×3 (02:37→23:18)
[2017-10-11] MEDS: ALBUTEROL 60 PUFFS/8 GM MDI IH SCH ×6 (04:51→23:16)
[2017-10-11] MEDS: methylPREDNISolone SOD SUCC 125 MG/2 ML VIAL IVP SCH ×3 (06:08→17:07)
[2017-10-11] MEDS: CHLORHEXIDINE GLUCONATE 15 ML UDL PO SCH ×2 (07:57→20:58)
[2017-10-11] MEDS: ENOXAPARIN 40 MG/0.4 ML SYR SC SCH ×2 (08:23→20:58)
[2017-10-11] MEDS: FUROSEMIDE 20 MG/2 ML VIAL IV SCH ×2 (08:23→20:58)
[2017-10-11] MEDS: METOCLOPRAMIDE 10 MG/2 ML VIAL IV SCH ×3 (08:23→20:58)
[2017-10-11] MEDS: FAMOTIDINE 20 MG/NACL 50 ML IV SCH ×2 (08:23→20:57)
[2017-10-11] MEDS: SENNOSIDES/DOCUSATE SODIUM TAB PO SCH (08:24)
[2017-10-11] MEDS: HYDROCORTISONE 2.5% 30 GM CRTUBE TP SCH ×2 (08:36→21:02)
[2017-10-11] MEDS: SENNOSIDES 17.6 MG/10 ML UDL PO SCH ×2 (11:02→20:58)
--- NOTE | 2017-10-11 13:08 | PDINTPN ---
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 He was apparently hypoxic as well at an urgent care. On arrival he was admitted to the floor on 6 lpm NC, and on HD#2 showed signs of etoh withdrawal and admitted to 8-10 vodkas daily so was started on Librium and CIWA protocol. On 10/03 he was somnolent and an ABG showed an acute hypercapnic respiratory failure treated initially with BIPAP. However, by 1800 his ABG was worse and required intubation by anesthesia via glidescope on 1st attempt. His CXR has been fairly unremarkable save for small- moderate pleural effusions, but because of increasing airway pressures was paralyzed and placed on PC ventilation on 10/04. A procalcitonin on 10/05 was unremarkable, and he was switched back to AC. * Acute hypercapnic and hypoxic respiratory failure- the etiology is uncertain to me but may be a combination of sedation, EDIE, bipap failure, and fluid overload, and a possible contribution from hMPV. No aspiration reported, though bipap is a risk. With a low procalcitonin on admission of 0.07, infection seems unlikely, and recheck was also low x 2 more. Large mucous plug in SABINE and small in LLL (both removed and dictated separately) on 10/05. Held steroids 10/05; he lacks a history of copd or asthma. Paralytics dc'd 10/08. HD#9, vent day #8. Massive obesity precludes proning and not an ECMO candidate since mortality not thought to be >50% at this point. May need eventual trach. No significant secretions seen on bronch 10/09. Resarted steroids (for? ARDS), continue with low dose lasix as tolerated. FiO2 down to 60%, following commands. Continue steroids, lasix * ETOH wd- considered early in hospital stay but not likely a factor at all currently. * HTN- stable for now. * Rash- bilateral erythematous rash, non-blanching where SCDs were. observe * * critical care time 35 minutes including bedside eval, chart review and discussion with multiple providers and separate from procedures 10/09/17 12:07 10/10/17 11:34 10/11/17 13:06 Subjective: no events Objective: Vital Signs Temp Pulse Resp BP Pulse Ox 37 C 82 18 143/81 H 91 L 10/11/17 10:00 10/11/17 12:21 10/11/17 12:21 10/11/17 10:00 10/11/17 12:21 Laboratory Results 10/10/17 04:45 10/10/17 04:45 10/10/17 10/11/17 10/12/17 05:59 05:59 05:59 Intake Total 1507 1589 Output Total 2450 2390 Balance -943 -801 PT 13.8 SEC (12.0-15.0) 10/04/17 04:15 INR 1.04 (0.83-1.16) 10/04/17 04:15 Physical Exam - Physical Exam General Appearance: no apparent distress, obtunded, obese EENT: PERRL/EOMI Neck: supple Respiratory: lungs clear, normal breath sounds, No respiratory distress, No accessory muscle use Cardiac/Chest: regular rate, rhythm, No edema Abdomen: non-tender, soft, No distended Skin: normal color, warm/dry, No cyanosis Lymphatic: no adenopathy Extremities: No pedal edema Neuro/Psych: motor weakness, cognition abnormalities ICD10 Worksheet Patient Problems: Problems Problem Status Onset Pneumonia Acute
--- NOTE | 2017-10-11 15:48 | HOSPPROG ---
Hospitalist Progress Note Assessment/Plan: Subjective Follow-up on acute hypercapnic and hypoxic respiratory failure No acute events overnight. Patient is more alert today. He is opening his eyes and engaging eye contact. His mother was present at the bedside and I updated her on the current status again. His case was also reviewed today with Dr. Garcia during rounds in the ICU. Objective Vital signs as detailed below On exam, patient appears comfortable he is arousable but will fall asleep if left undisturbed. Heart regular no murmurs appreciated. Lungs, somewhat diminished breath sounds throughout but no significant wheezing is appreciated. Abdomen, bowel sounds are noted today to be more active than yesterday's exam , obese, non tender with palpation. , Lopez catheter in place with dark appearing urine. Extremities, trace pitting edema both lower extremities. Skin , diminished erythematous rash noted on both lower extremities around mid garcia below. Labs as detailed below Assessment plan 1. Acute hypercapnic and hypoxic respiratory failure-likely multifactorial suspecting secondary to increased volume status and also human metapneumovirus may be playing a role as well. Patient has made some significant progress in the past 24 hr. He seems to be responding well with the Solu-Medrol and Lasix. Continue these along with further recommendations per Dr. Garcia. 2. Leg erythema-improved today. This may have been a reaction to heel cushions use. It also may be due to chronic venous stasis. 3. Alcohol use disorder-patient is currently sedated and appears comfortable. I would anticipate using lorazepam as needed once patient is able to be weaned off of sedation more 4. Hypertension-blood pressures appear reasonably well controlled. The patient is currently receiving Lasix. His lisinopril amlodipine and Coreg are currently on hold. In the coming days, these may need to be resumed. 5. Pulmonary nodule-this will need outpatient follow-up in 3-6 months. 6. Hyperlipidemia-statin therapy currently on hold as well. 7. DVT prophylaxis-continue current Lovenox. 8. GI prophylaxis-continue current Pepcid. 9. Bowels-continue MiraLax and lactulose. 10. Disposition-patient has made some significant improvement in his FiO2 requirement over the past 24 hr going from an FiO2 of 100% to 60% today. We will need to see how he progresses over the coming days. Hopefully can start working with PT and OT more. Considering the duration of his debility I would anticipate he may need short-term rehab placement. His home is in [place]. He is here in [place] working on a local [employer] project. Objective: Vital Signs Temp Pulse Resp BP Pulse Ox 37.3 C 76 25 H 146/82 H 91 L 10/11/17 15:00 10/11/17 15:00 10/11/17 15:00 10/11/17 15:00 10/11/17 15:00 Laboratory Results 10/10/17 04:45 10/10/17 04:45 10/10/17 10/11/17 10/12/17 05:59 05:59 05:59 Intake Total 1507 1589 Output Total 2450 2390 Balance -943 -801 PT 13.8 SEC (12.0-15.0) 10/04/17 04:15 INR 1.04 (0.83-1.16) 10/04/17 04:15 ICD10 Worksheet Patient Problems: Problems Problem Status Onset Pneumonia Acute
[2017-10-12] MEDS: methylPREDNISolone SOD SUCC 125 MG/2 ML VIAL IVP SCH ×3 (00:18→21:41)
[2017-10-12] MEDS: PROPOFOL/EMULSION 100 ML IV SCH ×10 (01:30→22:24)
[2017-10-12] MEDS ORDERED: GABAPENTIN 100 MG CAP PO ONE (02:34)
[2017-10-12] MEDS: ALBUTEROL 60 PUFFS/8 GM MDI IH SCH ×5 (03:42→20:34)
[2017-10-12 04:51] LABS: PLATELET COUNT 456 10^3/uL (150-400)
[2017-10-12] MEDS: fentaNYL/NACL 100 ML IV SCH ×3 (05:39→22:24)
[2017-10-12] MEDS ORDERED: D50W 25 GM/50 ML SYR IVP PRN (06:55)
[2017-10-12] MEDS ORDERED: INSULIN LISPRO 100 UNIT/ML SC SCH (07:00)
[2017-10-12] MEDS: ENOXAPARIN 40 MG/0.4 ML SYR SC SCH ×2 (09:05→21:39)
[2017-10-12] MEDS: SENNOSIDES 17.6 MG/10 ML UDL PO SCH ×2 (09:05→21:39)
[2017-10-12] MEDS: POLYETHYLENE GLYCOL 3350 17 GM PKT PO PRN (09:05)
[2017-10-12] MEDS: FAMOTIDINE 20 MG/NACL 50 ML IV SCH ×2 (09:06→21:39)
[2017-10-12] MEDS: METOCLOPRAMIDE 10 MG/2 ML VIAL IV SCH ×3 (09:06→21:39)
[2017-10-12] MEDS: FUROSEMIDE 20 MG/2 ML VIAL IV SCH (09:06)
--- NOTE | 2017-10-12 09:46 | PDINTPN ---
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 He was apparently hypoxic as well at an urgent care. On arrival he was admitted to the floor on 6 lpm NC, and on HD#2 showed signs of etoh withdrawal and admitted to 8-10 vodkas daily so was started on Librium and CIWA protocol. On 10/03 he was somnolent and an ABG showed an acute hypercapnic respiratory failure treated initially with BIPAP. However, by 1799 his ABG was worse and required intubation by anesthesia via glidescope on 1st attempt. His CXR has been fairly unremarkable save for small- moderate pleural effusions, but because of increasing airway pressures was paralyzed and placed on PC ventilation on 10/04. A procalcitonin on 10/05 was unremarkable, and he was switched back to AC. * Acute hypercapnic and hypoxic respiratory failure- the etiology is uncertain to me but may be a combination of sedation, EDIE, bipap failure, and fluid overload, and a possible contribution from hMPV. No aspiration reported, though bipap is a risk. With a low procalcitonin on admission of 0.07, infection seems unlikely, and recheck was also low x 2 more. Large mucous plug in SABINE and small in LLL (both removed and dictated separately) on 10/05. Held steroids 10/05; he lacks a history of COPD or asthma. Paralytics dc'd 10/08. HD#10, vent day #9. Not on ECMO candidate since mortality not thought to be >50% at this point. May need eventual trach. No significant secretions seen on bronch 10/09. Restarted steroids (for? ARDS), continue with low dose lasix as tolerated. FiO2 60%,on PEEP 15 cmH2O, following commands when sedation decreased. * ETOH wd- considered early in hospital stay but not likely a factor at all currently. * HTN- Running a bit high * Rash- bilateral erythematous rash, non-blanching where SCDs were. Less extensive. Plan: Continue steroids, but reduce dose to moderate level due to hyperglycemia and marginal benefit from higher dose. Change Lasix to Diamox. Increase FiO2 to 70% for hypoxemia Start JSAMIN-I for HTN Try to get sitting up as much as possible to reduce PEEP needs Reduce fentanyl. Consider changing Propofol to Precedex if tolerated reduced fentanyl. 35 minutes CC time addressing HTN, hypoxemia 10/12/17 12:58 Subjective: Intubated, sedated Objective: Vital Signs Temp Pulse Resp BP Pulse Ox 36.6 C 64 25 H 160/89 H 90 L 10/12/17 08:00 10/12/17 08:05 10/12/17 08:05 10/12/17 08:00 10/12/17 08:05 Laboratory Results 10/12/17 04:25 10/12/17 04:25 10/11/17 10/12/17 10/13/17 05:59 05:59 05:59 Intake Total 1589 1676 Output Total 2390 3500 Balance -801 -1824 PT 13.8 SEC (12.0-15.0) 10/04/17 04:15 INR 1.04 (0.83-1.16) 10/04/17 04:15 CXR: Mild persistent interstitial edema, left base opacity. Images reviewed by me. Laboratory Tests 10/12/17 11:34 pCO2 53 H pO2 63 L Total CO2 40 H ABG pH 7.48 H ABG HCO3 38 H O2 Concentration % 70 Respiration Rate 27 Set Respiration Rate 25 Tidal Volume 500 PEEP 15 Physical Exam - Physical Exam General Appearance: other (sedated) EENT: normal ENT inspection Neck: normal inspection Respiratory: lungs clear, normal breath sounds Cardiac/Chest: regular rate, rhythm, No edema Abdomen: normal bowel sounds, non-tender, soft Skin: normal color, warm/dry Extremities: normal inspection Neuro/Psych: No alert (sedated, weakly and inconsistently responds to commands) ICD10 Worksheet Patient Problems: Problems Problem Status Onset Pneumonia Acute
--- NOTE | 2017-10-12 09:46 | HOSPPROG ---
Hospitalist Progress Note Assessment/Plan: Assessment plan # Acute hypercapnic and hypoxic respiratory failure- likely multifactorial with increased volume status, EDIE, OHS, and human metapneumovirus. CT chest personally reviewed / interpreted, multifocal PNA- likely viral with neg PCT. Bronch 10/05 with RLL mucus plugging. Echo 10/09, no shunt. F/U CXR with some improvement in effusions and edema. BNP normal. FiO2 70%, vent day #8. Discussed with Dr. Peralta. -cont solumedrol, Lasix -wean vent as able # Leg erythema- improved. ? reaction to heel cushions use vs chronic venous stasis. # Alcohol use disorder-patient is currently sedated and appears comfortable. -CIWA / prn Ativan # Hypertension- BP's elevated today. The patient is currently receiving only Lasix. His lisinopril, amlodipine and Coreg are currently on hold. -restart Norvasc per tube -restart Lisinopril per tube at 40 mg daily (home dose is BID) # Pulmonary nodule- outpatient follow-up in 3-6 months. # Hyperlipidemia -statin therapy currently on hold. # Hyperglycemia - likely hastened by steroids -q6h bg's and low dose SSI -anticipate improvement with decreased steroids # DVT prophylaxis -continue Lovenox. # GI prophylaxis continue Pepcid. # Bowels-continue MiraLax and lactulose. # Disposition- cont inpt / ICU. Likely will require SNF. His home is in [place]. 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 Subjective: Pt sedated, ventilated, minimally responsive. No fevers. Objective: Vital Signs Temp Pulse Resp BP Pulse Ox 36.6 C 64 25 H 160/89 H 90 L 10/12/17 08:00 10/12/17 08:05 10/12/17 08:05 10/12/17 08:00 10/12/17 08:05 Laboratory Results 10/12/17 04:25 10/12/17 04:25 10/11/17 10/12/17 10/13/17 05:59 05:59 05:59 Intake Total 1589 1676 Output Total 2390 3500 Balance -801 -1824 PT 13.8 SEC (12.0-15.0) 10/04/17 04:15 INR 1.04 (0.83-1.16) 10/04/17 04:15 - Physical Exam Constitutional: no apparent distress, obese Eyes: PERRL Ears, Nose, Mouth, Throat: moist mucous membranes Cardiovascular: regular rate and rhythym Respiratory: no respiratory distress, bronchial breath sounds Gastrointestinal: normoactive bowel sounds, soft, non-tender abdomen, other ( obese) Skin: warm Musculoskeletal: other (decreased edema and erythema of b/l LE's, 2+ DP's b/l) ICD10 Worksheet Patient Problems: Problems Problem Status Onset Pneumonia Acute
[2017-10-12] MEDS ORDERED: LISINOPRIL 40 MG TAB PO SCH (09:51)
[2017-10-12] MEDS ORDERED: amLODIPine BESYLATE 5 MG TAB TUBE SCH (09:55)
[2017-10-12] MEDS: CHLORHEXIDINE GLUCONATE 15 ML UDL PO SCH ×2 (10:26→21:39)
[2017-10-12] MEDS ORDERED: INSULIN REGULAR HUMAN 100 UNIT in NS 100 ML IV SCH (11:00)
[2017-10-12] MEDS: amLODIPine BESYLATE 5 MG TAB TUBE SCH (11:27)
[2017-10-12] MEDS: HYDROCORTISONE 2.5% 30 GM CRTUBE TP SCH ×2 (11:30→21:39)
[2017-10-12] MEDS: acetaZOLAMIDE 250 MG in SYRINGE 0 ML IVP SCH ×2 (13:05→21:43)
--- NOTE | 2017-10-12 16:42 | ASMTCMCOM ---
CM Note CM Note Notes: Met for a "Family Mtg" with patient's mother, Dionne Jin. Dionne is acting as his Med Proxy along with his sister Clara Hagan. Mother concerned that patient doesn't have ins and we talked about Medicaid and that Medicaid would have to be applied for in [place]. Melissa, Medicaid Specialist to meet with mother Thursday. Patient still on the vent but alert and purposeful. Date Signed: 10/12/2017 04:41 PM Electronically Signed By:Genesis Bocanegra LCSW
[2017-10-12] MEDS: LORazepam 2 MG/ML INJ IVP PRN (19:20)
[2017-10-13] MEDS: ALBUTEROL 60 PUFFS/8 GM MDI IH SCH ×7 (00:31→23:44)
[2017-10-13] MEDS: PROPOFOL/EMULSION 100 ML IV SCH ×8 (01:00→22:00)
[2017-10-13 05:08] LABS: PLATELET COUNT 445 10^3/uL (150-400)
[2017-10-13] MEDS ORDERED: fentaNYL/NACL 100 ML IV SCH (08:30)
[2017-10-13] MEDS: METOCLOPRAMIDE 10 MG/2 ML VIAL IV SCH ×3 (08:54→21:05)
[2017-10-13] MEDS: FAMOTIDINE 20 MG/NACL 50 ML IV SCH ×2 (08:54→21:01)
[2017-10-13] MEDS: LISINOPRIL 40 MG TAB TUBE SCH (08:55)
[2017-10-13] MEDS: methylPREDNISolone SOD SUCC 125 MG/2 ML VIAL IVP SCH ×2 (08:55→21:03)
[2017-10-13] MEDS: ENOXAPARIN 40 MG/0.4 ML SYR SC SCH ×2 (08:56→21:03)
[2017-10-13] MEDS: amLODIPine BESYLATE 5 MG TAB TUBE SCH (08:56)
[2017-10-13] MEDS: CHLORHEXIDINE GLUCONATE 15 ML UDL PO SCH ×2 (08:56→20:48)
[2017-10-13] MEDS: SENNOSIDES 17.6 MG/10 ML UDL PO SCH ×2 (08:57→21:03)
[2017-10-13] MEDS: acetaZOLAMIDE 250 MG in SYRINGE 0 ML IVP SCH ×2 (08:59→21:03)
--- NOTE | 2017-10-13 09:39 | HOSPPROG ---
Hospitalist Progress Note Assessment/Plan: Assessment & plan # Acute hypercapneic and hypoxic respiratory failure- likely multifactorial with increased volume status, EDIE, OHS, and human metapneumovirus. CT chest personally reviewed / interpreted, multifocal PNA- likely viral with neg PCT. Bronch 10/05 with RLL mucus plugging. Echo 10/09, no shunt. F/U CXR with some improvement in effusions and edema. BNP normal. FiO2 70%, vent day #10. Discussed with Dr. Peralta and care team. -cont solumedrol -Lasix changed to Diamox, contraction alkalosis improved -vent settings per pulm -serial CXR, ABG # Leg erythema- improved. Suspect chronic venous stasis # Alcohol use disorder- Doubt w/d at this point. # Hypertension- BP's improving, back on Amlodipine and Lisinopril. -resume Coreg today # Pulmonary nodule- outpatient follow-up in 3-6 months. # Hyperlipidemia -statin therapy currently on hold. # Hyperglycemia - likely hastened by steroids, a1c 6.1% -insulin drip -expect improvement with weaning of steroids # DVT prophylaxis - Lovenox. # GI prophylaxis - Pepcid. # Bowels- continue MiraLax and lactulose. # Disposition- cont inpt / ICU. Likely will require SNF. His home is in [place]. He is here in [place] working on a local [employer] project. Subjective: Pt intubated and sedated, but awakens easily, opens eyes. Follows commands. No fevers. Objective: Vital Signs Temp Pulse Resp BP Pulse Ox 36.6 C 76 16 145/88 H 94 10/13/17 08:00 10/13/17 08:00 10/13/17 08:00 10/13/17 08:00 10/13/17 08:00 Laboratory Results 10/13/17 04:55 10/13/17 04:55 10/12/17 10/13/17 10/14/17 05:59 05:59 05:59 Intake Total 1676 2501.9 Output Total 3500 3200 Balance -1824 -698.1 PT 13.8 SEC (12.0-15.0) 10/04/17 04:15 INR 1.04 (0.83-1.16) 10/04/17 04:15 - Physical Exam Constitutional: no apparent distress, obese Eyes: PERRL Ears, Nose, Mouth, Throat: moist mucous membranes Cardiovascular: regular rate and rhythym Respiratory: no respiratory distress, reduced air movement Gastrointestinal: normoactive bowel sounds, soft, non-tender abdomen Skin: warm Musculoskeletal: other (b/l brawny LE edema, no warmth, less edema) Neurologic: AAOx3 Psychiatric: interacting appropriately ICD10 Worksheet Patient Problems: Problems Problem Status Onset Pneumonia Acute
--- NOTE | 2017-10-13 09:58 | PDINTPN ---
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 He was apparently hypoxic as well at an urgent care. On arrival he was admitted to the floor on 6 lpm NC, and on HD#2 showed signs of etoh withdrawal and admitted to 8-10 vodkas daily so was started on Librium and CIWA protocol. On 10/03 he was somnolent and an ABG showed an acute hypercapnic respiratory failure treated initially with BIPAP. However, by 1800 his ABG was worse and required intubation by anesthesia via glidescope on 1st attempt. His CXR has been fairly unremarkable save for small- moderate pleural effusions, but because of increasing airway pressures was paralyzed and placed on PC ventilation on 10/04. A procalcitonin on 10/05 was unremarkable, and he was switched back to AC. * Acute hypercapnic and hypoxic respiratory failure- the etiology is uncertain to me but may be a combination of sedation, EDIE, fluid overload, and a possible contribution from hMPV. No aspiration reported, though bipap is a risk. With a low procalcitonin on admission of 0.07, infection seems unlikely, and recheck was also low x 2 more. Large mucous plug in SABINE and small in LLL (both removed and dictated separately) on 10/05. Held steroids 10/05; he lacks a history of COPD or asthma. Paralytics dc'd 10/08. HD#11, vent day #10. Not on ECMO candidate since mortality not thought to be >50% at this point. May need eventual trach. No significant secretions seen on bronch 10/09. Restarted steroids (for? ARDS), continue with low dose lasix as tolerated. FiO2 60%,on PEEP 15 cmH2O, following commands when sedation decreased. * ETOH wd- considered early in hospital stay but not likely a factor at all currently. * HTN- Running a bit high * Rash- bilateral erythematous rash, non-blanching where SCDs were. Less extensive. Plan: Continue steroids, but reduce dose to moderate level due to hyperglycemia and marginal benefit from higher dose. Continue Diamox, JASMIN-I Decrease FiO2 to 60% for hypoxemia Try to get sitting up as much as possible to reduce PEEP needs Try stopping fentanyl. Consider changing Propofol to Precedex if tolerated reduced fentanyl. 10/13/17 11:01 Subjective: Intubated, sedated, follows commands. Objective: Vital Signs Temp Pulse Resp BP Pulse Ox 36.6 C 69 26 H 145/88 H 94 10/13/17 08:00 10/13/17 09:44 10/13/17 09:44 10/13/17 08:00 10/13/17 09:44 Laboratory Results 10/13/17 04:55 10/13/17 04:55 10/12/17 10/13/17 10/14/17 05:59 05:59 05:59 Intake Total 1676 2501.9 Output Total 3500 3200 Balance -1824 -698.1 PT 13.8 SEC (12.0-15.0) 10/04/17 04:15 INR 1.04 (0.83-1.16) 10/04/17 04:15 Physical Exam - Physical Exam General Appearance: alert (sedated but fairly alert) EENT: normal ENT inspection Neck: normal inspection Respiratory: lungs clear Cardiac/Chest: regular rate, rhythm, No edema Abdomen: normal bowel sounds, non-tender Skin: other (stable lower leg erythema) Extremities: normal inspection Neuro/Psych: alert, oriented x 3 ICD10 Worksheet Patient Problems: Problems Problem Status Onset Pneumonia Acute
[2017-10-13] MEDS: HYDROCORTISONE 2.5% 30 GM CRTUBE TP SCH ×2 (11:47→21:08)
[2017-10-13] MEDS: CARVEDILOL 6.25 MG TAB TUBE SCH (17:06)
[2017-10-13] MEDS: LORazepam 2 MG/ML INJ IVP PRN (19:36)
[2017-10-14] MEDS: PROPOFOL/EMULSION 100 ML IV SCH ×4 (00:58→09:02)
[2017-10-14] MEDS: ALBUTEROL 60 PUFFS/8 GM MDI IH SCH ×6 (04:14→23:52)
[2017-10-14] MEDS: ENOXAPARIN 40 MG/0.4 ML SYR SC SCH ×2 (09:02→21:07)
[2017-10-14] MEDS: CHLORHEXIDINE GLUCONATE 15 ML UDL PO SCH ×2 (09:02→21:07)
[2017-10-14] MEDS: FAMOTIDINE 20 MG/NACL 50 ML IV SCH ×2 (09:02→21:06)
[2017-10-14] MEDS: acetaZOLAMIDE 250 MG in SYRINGE 0 ML IVP SCH (09:03)
[2017-10-14] MEDS: SENNOSIDES 17.6 MG/10 ML UDL PO SCH ×2 (09:03→21:07)
[2017-10-14] MEDS: LISINOPRIL 40 MG TAB TUBE SCH (09:03)
[2017-10-14] MEDS: methylPREDNISolone SOD SUCC 125 MG/2 ML VIAL IVP SCH ×2 (09:03→21:06)
[2017-10-14] MEDS: METOCLOPRAMIDE 10 MG/2 ML VIAL IV SCH ×3 (09:04→21:06)
[2017-10-14] MEDS: CARVEDILOL 6.25 MG TAB TUBE SCH ×2 (09:04→18:14)
[2017-10-14] MEDS: amLODIPine BESYLATE 5 MG TAB TUBE SCH (09:05)
[2017-10-14] MEDS: HYDROCORTISONE 2.5% 30 GM CRTUBE TP SCH ×2 (09:05→21:09)
--- NOTE | 2017-10-14 09:34 | HOSPPROG ---
Hospitalist Progress Note Assessment/Plan: Assessment & plan # Acute hypercapneic and hypoxic respiratory failure- likely multifactorial with increased volume status, EDIE, OHS, and human metapneumovirus. CT chest personally reviewed / interpreted, multifocal PNA- likely viral with neg PCT. Bronch 10/05 with RLL mucus plugging. Echo 10/09, no shunt. F/U CXR with some improvement in effusions and edema. BNP normal. FiO2 60%, vent day #11, on CPAP this am, still sedated. Discussed with Dr. Peralta and care team. -cont solumedrol -was on Diamox to reverse contraction alkalosis, back to Lasix today per pulm to effect net neg diuresis -on CPAP trial, considering extubation -upright as much as possible -serial CXR, ABG # Leg erythema- improved. Suspect chronic venous stasis # Alcohol use disorder- Doubt w/d at this point. # Hypertension- BP's improved back on home regimen (Norvasc, Lisinopril, Coreg) # Pulmonary nodule- outpatient follow-up in 3-6 months. # Hyperlipidemia - statin therapy currently on hold. # Hyperglycemia - likely hastened by steroids, a1c 6.1% -insulin drip -expect improvement with weaning of steroids # DVT prophylaxis - Lovenox. # GI prophylaxis - Pepcid. # Bowels- continue MiraLax and lactulose. # Disposition- cont inpt / ICU. Likely will require SNF. His home is in [place]. 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 Subjective: Pt intubated, sedated, but follows commands and opens eyes. No fevers. Denies pain. Objective: Vital Signs Temp Pulse Resp BP Pulse Ox 37.4 C 82 24 H 118/62 97 10/14/17 04:00 10/14/17 09:27 10/14/17 09:27 10/14/17 06:00 10/14/17 09:27 Microbiology 10/08/17 16:55 Blood Culture - Final Blood 10/08/17 16:50 Blood Culture - Final Blood 10/04/17 15:15 Mycobacterial Smear (LARISA) - Final Lung - Bronchial Washings Laboratory Results 10/13/17 04:55 10/14/17 04:00 10/13/17 10/14/17 10/15/17 05:59 05:59 05:59 Intake Total 2501.9 3545 Output Total 3200 2400 Balance -698.1 1145 PT 13.8 SEC (12.0-15.0) 10/04/17 04:15 INR 1.04 (0.83-1.16) 10/04/17 04:15 - Physical Exam Constitutional: no apparent distress, obese Eyes: PERRL Ears, Nose, Mouth, Throat: moist mucous membranes Cardiovascular: regular rate and rhythym Respiratory: no respiratory distress, reduced air movement Gastrointestinal: normoactive bowel sounds, soft, non-tender abdomen, other ( obese) Skin: warm Musculoskeletal: full muscle strength Neurologic: AAOx3 Psychiatric: interacting appropriately ICD10 Worksheet Patient Problems: Problems Problem Status Onset Pneumonia Acute
--- NOTE | 2017-10-14 11:20 | PDINTPN ---
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 He was apparently hypoxic as well at an urgent care. On arrival he was admitted to the floor on 6 lpm NC, and on HD#2 showed signs of etoh withdrawal and admitted to 8-10 vodkas daily so was started on Librium and CIWA protocol. On 10/03 he was somnolent and an ABG showed an acute hypercapnic respiratory failure treated initially with BIPAP. However, by 1800 his ABG was worse and required intubation by anesthesia via glidescope on 1st attempt. His CXR has been fairly unremarkable save for small- moderate pleural effusions, but because of increasing airway pressures was paralyzed and placed on PC ventilation on 10/04. A procalcitonin on 10/05 was unremarkable, and he was switched back to AC. * Acute hypercapnic and hypoxic respiratory failure- the etiology is uncertain to me but may be a combination of sedation, EDIE, fluid overload, and a possible contribution from hMPV. No aspiration reported, though bipap is a risk. With a low procalcitonin on admission of 0.07, infection seems unlikely, and recheck was also low x 2 more. Large mucous plug in SABINE and small in LLL (both removed and dictated separately) on 10/05. Held steroids 10/05; he lacks a history of COPD or asthma. [facility] dc'd 10/08. HD#11, vent day #10. Not on ECMO candidate since mortality not thought to be >50% at this point. No significant secretions seen on bronch 10/09. Restarted steroids (for? ARDS), continue with low dose lasix as tolerated. FiO2 60%,on PEEP reduced to 10 cmH2O, following commands when sedation decreased. Did well sitting in a chair for several hours yesterday. Hopefully can extube in the next few days, but today his VE, PE, FiO2 are still a bit high. * ETOH wd- considered early in hospital stay but not likely a factor at all currently. * HTN- Well-treated * Rash- bilateral erythematous rash, non-blanching where SCDs were. Less extensive. Plan: Continue steroids at moderate dose Discontinue Diamox, continue JASMIN-I. Resume Lasix to try to get net diuresis, and follow lytes. Decrease FiO2 to 50% for hypoxemia Try to get sitting up as much as possible to reduce PEEP needs Minimize sedation. 10/14/17 11:21 Subjective: Intubated, sedated but responds weakly to questions. Objective: Vital Signs Temp Pulse Resp BP Pulse Ox 37.4 C 82 24 H 118/62 97 10/14/17 04:00 10/14/17 09:27 10/14/17 09:27 10/14/17 06:00 10/14/17 09:27 Microbiology 10/08/17 16:55 Blood Culture - Final Blood 10/08/17 16:50 Blood Culture - Final Blood 10/04/17 15:15 Mycobacterial Smear (LARISA) - Final Lung - Bronchial Washings Laboratory Results 10/13/17 04:55 10/14/17 04:00 10/13/17 10/14/17 10/15/17 05:59 05:59 05:59 Intake Total 2501.9 3545 Output Total 3200 2400 Balance -698.1 1145 PT 13.8 SEC (12.0-15.0) 10/04/17 04:15 INR 1.04 (0.83-1.16) 10/04/17 04:15 CXR: Little change in basilar infiltrates/effusions. Images reviewed by me. Physical Exam - Physical Exam General Appearance: alert, no apparent distress EENT: normal ENT inspection Neck: normal inspection Respiratory: lungs clear, normal breath sounds Cardiac/Chest: regular rate, rhythm, No edema Abdomen: normal bowel sounds, non-tender Skin: normal color, warm/dry Extremities: normal inspection Neuro/Psych: No alert, No normal mood/affect, No motor weakness ICD10 Worksheet Patient Problems: Problems Problem Status Onset Pneumonia Acute
[2017-10-14] MEDS: FUROSEMIDE 40 MG/4 ML VIAL IVP SCH (16:07)
[2017-10-15] MEDS: ALBUTEROL 60 PUFFS/8 GM MDI IH SCH ×2 (04:20→09:44)
[2017-10-15] MEDS: SENNOSIDES 17.6 MG/10 ML UDL PO SCH ×2 (08:08→22:38)
[2017-10-15] MEDS: methylPREDNISolone SOD SUCC 125 MG/2 ML VIAL IVP SCH ×2 (08:08→22:35)
[2017-10-15] MEDS: FAMOTIDINE 20 MG/NACL 50 ML IV SCH ×2 (08:10→22:35)
[2017-10-15] MEDS: ENOXAPARIN 40 MG/0.4 ML SYR SC SCH ×2 (08:10→22:35)
[2017-10-15] MEDS: METOCLOPRAMIDE 10 MG/2 ML VIAL IV SCH ×3 (08:10→22:38)
[2017-10-15] MEDS: FUROSEMIDE 40 MG/4 ML VIAL IVP SCH ×2 (08:11→15:22)
[2017-10-15] MEDS: CHLORHEXIDINE GLUCONATE 15 ML UDL PO SCH ×2 (08:12→20:31)
[2017-10-15] MEDS: LORazepam 2 MG/ML INJ IVP PRN (08:36)
[2017-10-15] MEDS: amLODIPine BESYLATE 5 MG TAB TUBE SCH (09:43)
[2017-10-15] MEDS: CARVEDILOL 6.25 MG TAB TUBE SCH ×2 (09:43→17:37)
[2017-10-15] MEDS: LISINOPRIL 40 MG TAB TUBE SCH (09:44)
--- NOTE | 2017-10-15 10:51 | ASMTLACE ---
LACE Length of stay for Answers: 14 days or more current admission Acuity / Level of Answers: Yes Care: Did the patient have an inpatient admission? Comorbidities - select Answers: Chronic pulmonary disease all that apply Congestive heart failure Other Notes: HTN # of Emergency department Answers: 1-2 visits in the last 6 months Social determinants Answers: History of substance abuse (ETOH, street drugs, prescription drugs, etc.) Lack of community resources and/or lack of social support (no pcp, lives alone, transportation, tio d) Score: 23 Date Signed: 10/15/2017 10:51 AM Electronically Signed By:Katja Rosales
--- NOTE | 2017-10-15 11:08 | PDINTPN ---
Document Review Attorney Progress Note Assessment/Plan: Assessment: 42 morbidly obese M visiting from [place] since Aug admitted 10/01/17 with SOB after self treating "pneumonia" with cipro. He was apparently hypoxic as well at an urgent care. On arrival he was admitted to the floor on 6 lpm NC, and on HD#2 showed signs of etoh withdrawal and admitted to 8-10 vodkas daily so was started on Librium and CIWA protocol. On 10/03 he was somnolent and an ABG showed an acute hypercapnic respiratory failure treated initially with BIPAP. However, by 1800 his ABG was worse and required intubation by anesthesia via glidescope on 1st attempt. His CXR has been fairly unremarkable save for small- moderate pleural effusions, but because of increasing airway pressures was paralyzed and placed on PC ventilation on 10/04. A procalcitonin on 10/05 was unremarkable, and he was switched back to AC. * Acute hypercapnic and hypoxic respiratory failure- the etiology is uncertain to me but may be a combination of sedation, EDIE, fluid overload, and a possible contribution from hMPV. No aspiration reported, though bipap is a risk. With a low procalcitonin on admission of 0.07, infection seems unlikely, and recheck was also low x 2 more. Large mucous plug in SABINE and small in LLL (both removed and dictated separately) on 10/05. Held steroids 10/05; he lacks a history of COPD or asthma. [facility] dc'd 10/08. HD#11, vent day #10. Not on ECMO candidate since mortality not thought to be >50% at this point. No significant secretions seen on bronch 10/09. Restarted steroids (for? ARDS), continue with low dose lasix as tolerated. FiO2 45%,on PEEP reduced to 5 from 10 cmH2O, following commands when sedation off. Did well sitting in a chair for several hours yesterday. * ETOH wd- considered early in hospital stay but not likely a factor at all currently. * HTN- Well-treated * Rash- bilateral erythematous rash, non-blanching where SCDs were. Slowly improving. Plan: Continue steroids at moderate dose Continue JASMIN-I. Continue Lasix to try to get net diuresis, and follow lytes. Will extubate BiPAP with sleeping. Swallow eval. PT/OT to work on increasing strength/mobility. 10/15/17 11:11 Subjective: Alert, following commands, comfortable except for ETT. Objective: Vital Signs Temp Pulse Resp BP Pulse Ox 37.7 C 89 17 136/74 H 92 10/15/17 10:00 10/15/17 10:12 10/15/17 10:00 10/15/17 10:00 10/15/17 10:12 Laboratory Results 10/13/17 04:55 10/15/17 05:40 10/14/17 10/15/17 10/16/17 05:59 05:59 05:59 Intake Total 3545 2887.5 Output Total 2400 3150 Balance 1145 -262.5 PT 13.8 SEC (12.0-15.0) 10/04/17 04:15 INR 1.04 (0.83-1.16) 10/04/17 04:15 Physical Exam - Physical Exam General Appearance: alert, mild distress EENT: normal ENT inspection Neck: normal inspection Respiratory: normal breath sounds Cardiac/Chest: regular rate, rhythm, No edema Abdomen: normal bowel sounds, non-tender Skin: normal color, warm/dry Extremities: normal inspection Neuro/Psych: alert, normal mood/affect, oriented x 3 ICD10 Worksheet Patient Problems: Problems Problem Status Onset Pneumonia Acute
[2017-10-15] MEDS: HYDROCORTISONE 2.5% 30 GM CRTUBE TP SCH ×2 (12:09→22:38)
--- NOTE | 2017-10-15 15:08 | HOSPPROG ---
Hospitalist Progress Note Assessment/Plan: 42 yo morbidly obese M admitted with SOB and acute respiratory failure # Acute hypercapneic and hypoxic respiratory failure- likely multifactorial with increased volume status with pleural effusions, EDIE, OHS, and human metapneumovirus. Intubated on the and extubated on . Echo 10/09, no shunt. F/U CXR with some improvement in effusions and edema. BNP normal. Continue steroids, lasix. Now saturating in low 90s on 4L O2. # Leg erythema- 2/2 chronic venous stasis, improved # Alcohol use disorder- Doubt w/d at this point. # Hypertension- BP's improved back on home regimen (Norvasc, Lisinopril, Coreg) # Pulmonary nodule- outpatient follow-up in 3-6 months. # Hyperlipidemia - statin therapy currently on hold. # Hyperglycemia - likely hastened by steroids, a1c 6.1% -insulin drip -expect improvement with weaning of steroids # DVT prophylaxis - Lovenox. # GI prophylaxis - Pepcid. # Bowels- continue MiraLax and lactulose. # morbid obesity: recommend lifestyle modification # nutrition: was on TF, will work on swallow eval IP status Patient new to my care. Old records reviewed and summarized as above. Care plan reviewed with Dr. Peralta and multidisciplinary team. Subjective: no significant overnight events, patient extubated, responsive Objective: Vital Signs Temp Pulse Resp BP Pulse Ox 37.9 C 103 H 19 147/106 H 90 L 10/15/17 12:00 10/15/17 14:00 10/15/17 14:00 10/15/17 14:00 10/15/17 14:00 Laboratory Results 10/13/17 04:55 10/15/17 05:40 10/14/17 10/15/17 10/16/17 05:59 05:59 05:59 Intake Total 3545 2887.5 Output Total 2400 3150 1350 Balance 1145 -262.5 -1350 PT 13.8 SEC (12.0-15.0) 10/04/17 04:15 INR 1.04 (0.83-1.16) 10/04/17 04:15 awake alert anicteric op clear rrr distant clear to ant auscultation obese soft + bs ble edema warm dry bilaterl lower extremity erythema 2/2 venous stasis responding to commands ICD10 Worksheet Patient Problems: Problems Problem Status Onset Pneumonia Acute
--- NOTE | 2017-10-15 15:14 | ASMTCMCOM ---
CM Note CM Note Notes: Patient's sister Clara arrived from [place] and another family meeting was held today to answer questions. Patient's family would like a letter stating patient was unable to manage his personal affairs for the time from admit to when he is deemed medically stable. Spoke with Charbel talavera: emergency Medicaid in [place]. She gave me the number of the Medicaid office in [place], [place] [phone] to give to patient's sister Clara who will initiate the application if he qualifies. Letter was prepared and given to patient's mother, Dionne. Emergency Medicaid does not cover any kind of rehab care. However, we might be able to arrange for the family to stay in a hotel room and pay for a week of home health PT and nursing. D/C plan remains TBD. Transport home will also pose some d/c issues. CM will follow. Date Signed: 10/15/2017 03:13 PM Electronically Signed By:Radha Burgos LCSW
[2017-10-15] MEDS ORDERED: D50W 25 GM/50 ML SYR IVP PRN (15:38)
[2017-10-15] MEDS: INSULIN REGULAR HUMAN 100 UNIT/ML UNIT SC SCH ×2 (17:37→22:38)
--- NOTE | 2017-10-16 09:35 | PDINTPN ---
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 He was apparently hypoxic as well at an urgent care. On arrival he was admitted to the floor on 6 lpm NC, and on HD#2 showed signs of etoh withdrawal and admitted to 8-10 vodkas daily so was started on Librium and CIWA protocol. On 10/03 he was somnolent and an ABG showed an acute hypercapnic respiratory failure treated initially with BIPAP. However, by 1799 his ABG was worse and required intubation by anesthesia via glidescope on 1st attempt. His CXR has been fairly unremarkable save for small- moderate pleural effusions, but because of increasing airway pressures was paralyzed and placed on PC ventilation on 10/04. A procalcitonin on 10/05 was unremarkable, and he was switched back to AC. Extubated 10/15. * Acute hypercapnic and hypoxic respiratory failure- the etiology is uncertain to me but may be a combination of sedation, EDIE, fluid overload, and a possible contribution from hMPV. No aspiration reported, though bipap is a risk. With a low procalcitonin on admission of 0.07, infection seems unlikely, and recheck was also low x 2 more. Large mucous plug in SABINE and small in LLL (both removed and dictated separately) on 10/05. Held steroids 10/05; he lacks a history of COPD or asthma. [facility] dc'd 10/08. HD#11, vent day #10. Not on ECMO candidate since mortality not thought to be >50% at this point. No significant secretions seen on bronch 10/09. Restarted steroids (for? ARDS), continue with low dose lasix as tolerated. Did well sitting in a chair for several hours last few days * ETOH wd- considered early in hospital stay but not likely a factor at all currently. * HTN- Well-treated * Rash- bilateral erythematous rash, non-blanching where SCDs were. Slowly improving. Plan: Reduce steroids Continue JASMIN-I. Continue Lasix to try to get net diuresis, and follow lytes. CPAP with sleeping. Swallow eval. PT/OT to work on increasing strength/mobility. Tx to SDU or Med/Surg 10/16/17 09:36 Subjective: Feels OK, a bit weaker than yesterday. Didn't sleep well last night due to outside disturbances. Objective: Vital Signs Temp Pulse Resp BP Pulse Ox 36.8 C 104 H 30 H 126/71 H 93 10/16/17 08:00 10/16/17 08:00 10/16/17 08:00 10/16/17 08:00 10/16/17 08:00 Laboratory Results 10/13/17 04:55 10/15/17 05:40 10/15/17 10/16/17 10/17/17 05:59 05:59 05:59 Intake Total 2887.5 1620 Output Total 3150 2350 Balance -262.5 -730 PT 13.8 SEC (12.0-15.0) 10/04/17 04:15 INR 1.04 (0.83-1.16) 10/04/17 04:15 Physical Exam - Physical Exam General Appearance: alert, no apparent distress EENT: normal ENT inspection Neck: normal inspection Respiratory: lungs clear, No normal breath sounds Cardiac/Chest: regular rate, rhythm, edema Abdomen: normal bowel sounds, non-tender Skin: normal color, warm/dry Extremities: normal inspection Neuro/Psych: alert, normal mood/affect, oriented x 3 ICD10 Worksheet Patient Problems: Problems Problem Status Onset Pneumonia Acute
[2017-10-16] MEDS: INSULIN REGULAR HUMAN 100 UNIT/ML UNIT SC SCH ×4 (09:37→21:34)
[2017-10-16] MEDS: CARVEDILOL 6.25 MG TAB TUBE SCH (09:46)
[2017-10-16] MEDS: LISINOPRIL 40 MG TAB TUBE SCH (09:47)
[2017-10-16] MEDS: amLODIPine BESYLATE 5 MG TAB TUBE SCH (09:47)
[2017-10-16] MEDS: ENOXAPARIN 40 MG/0.4 ML SYR SC SCH ×2 (09:48→21:33)
[2017-10-16] MEDS: METOCLOPRAMIDE 10 MG/2 ML VIAL IV SCH (09:48)
[2017-10-16] MEDS: CHLORHEXIDINE GLUCONATE 15 ML UDL PO SCH (09:48)
[2017-10-16] MEDS: FAMOTIDINE 20 MG/NACL 50 ML IV SCH (09:48)
[2017-10-16] MEDS: methylPREDNISolone SOD SUCC 125 MG/2 ML VIAL IVP SCH (10:23)
[2017-10-16] MEDS ORDERED: ACETAMINOPHEN 325 MG TAB PO PRN (10:52)
[2017-10-16] MEDS: FUROSEMIDE 40 MG/4 ML VIAL IVP SCH (11:42)
[2017-10-16] MEDS: HYDROCORTISONE 2.5% 30 GM CRTUBE TP SCH ×2 (11:43→21:33)
[2017-10-16] MEDS: SENNOSIDES 1 TAB PO SCH ×2 (11:55→21:34)
--- NOTE | 2017-10-16 13:52 | ASMTCMCOM ---
CM Note CM Note Notes: OT is recommending SNF or Inpatient rehab. PT is recommending SNF rehab. Patient does not have insurance to cover this. Patient's family is trying to make application for emergency Medicaid with the state [facility] but this insurance does not cover anything except the emergency hospitalization. Patient's family is here and supportive. D/C plan most likely will be home to [place] for follow up. CM will follow. Date Signed: 10/16/2017 01:51 PM Electronically Signed By:Radha Burgos LCSW
--- NOTE | 2017-10-16 15:03 | HOSPPROG ---
Hospitalist Progress Note Assessment/Plan: 42 yo morbidly obese M admitted with SOB and acute respiratory failure # Acute hypercapneic and hypoxic respiratory failure- likely multifactorial with increased volume status with pleural effusions, EDIE, OHS, and human metapneumovirus. Intubated on the and extubated on . Doing well since extubation on 4-5L of O2. # Leg erythema- 2/2 chronic venous stasis, improved # Alcohol use disorder- Doubt w/d at this point. # Hypertension- BP's improved back on home regimen (Norvasc, Lisinopril, Coreg) # Pulmonary nodule- outpatient follow-up in 3-6 months. # Hyperlipidemia - statin therapy currently on hold. # Hyperglycemia - likely hastened by steroids, a1c 6.1% # DVT prophylaxis - Lovenox. # GI prophylaxis - Pepcid. # Bowels- continue MiraLax and lactulose. # morbid obesity: recommend lifestyle modification # nutrition: was on TF, will work on swallow eval IP status Care plan reviewed with Dr. Peralta and multidisciplinary team. Subjective: no significant overnight events, patient still doing well since extubation Objective: Vital Signs Temp Pulse Resp BP Pulse Ox 36.8 C 97 18 123/74 H 92 10/16/17 08:00 10/16/17 10:00 10/16/17 10:00 10/16/17 10:00 10/16/17 10:00 Laboratory Results 10/13/17 04:55 10/16/17 10:00 10/15/17 10/16/17 10/17/17 05:59 05:59 05:59 Intake Total 2887.5 1620 Output Total 3150 2350 Balance -262.5 -730 PT 13.8 SEC (12.0-15.0) 10/04/17 04:15 INR 1.04 (0.83-1.16) 10/04/17 04:15 awake alert anicteric op clear rrr distant clear to ant auscultation obese soft + bs ble edema warm dry bilaterl lower extremity erythema 2/2 venous stasis responding to commands ICD10 Worksheet Patient Problems: Problems Problem Status Onset Pneumonia Acute
[2017-10-16] MEDS: SENNOSIDES 17.6 MG/10 ML UDL PO SCH (16:27)
[2017-10-16] MEDS: FUROSEMIDE 20 MG TAB PO SCH (16:34)
[2017-10-16] MEDS: CARVEDILOL 6.25 MG TAB PO SCH (21:33)
[2017-10-16] MEDS: predniSONE 20 MG TAB PO SCH (21:34)
[2017-10-17] MEDS: INSULIN REGULAR HUMAN 100 UNIT/ML UNIT SC SCH ×4 (08:27→20:32)
[2017-10-17] MEDS: LISINOPRIL 40 MG TAB PO SCH (08:49)
[2017-10-17] MEDS: predniSONE 20 MG TAB PO SCH ×2 (08:49→18:35)
[2017-10-17] MEDS: FUROSEMIDE 20 MG TAB PO SCH ×2 (08:49→16:31)
[2017-10-17] MEDS: CARVEDILOL 6.25 MG TAB PO SCH ×2 (08:49→18:35)
[2017-10-17] MEDS: SENNOSIDES 1 TAB PO SCH ×2 (08:49→19:14)
[2017-10-17] MEDS: ENOXAPARIN 40 MG/0.4 ML SYR SC SCH ×2 (08:50→20:27)
[2017-10-17] MEDS: amLODIPine BESYLATE 5 MG TAB PO SCH (08:50)
[2017-10-17] MEDS: HYDROCORTISONE 2.5% 30 GM CRTUBE TP SCH ×2 (08:55→19:15)
[2017-10-17] MEDS ORDERED: D50W 25 GM/50 ML VIAL IVP PRN (13:30)
--- NOTE | 2017-10-17 14:54 | HOSPPROG ---
Hospitalist Progress Note Assessment/Plan: 42 yo morbidly obese M admitted with SOB and acute respiratory failure # Acute hypercapneic and hypoxic respiratory failure- likely multifactorial with increased volume status with pleural effusions, EDIE, OHS, and human metapneumovirus. Intubated on the and extubated on . Doing well since extubation on 4-5L of O2. # Leg erythema- 2/2 chronic venous stasis, improved # Alcohol use disorder- Doubt w/d at this point. # Hypertension- BP's improved back on home regimen (Norvasc, Lisinopril, Coreg) # Pulmonary nodule- outpatient follow-up in 3-6 months. # Hyperlipidemia - statin therapy currently on hold. # Hyperglycemia - likely hastened by steroids, a1c 6.1% # DVT prophylaxis - Lovenox. # GI prophylaxis - Pepcid. # Bowels- continue MiraLax and lactulose. # morbid obesity: recommend lifestyle modification # nutrition: was on TF, will work on swallow eval IP status Care plan reviewed with family present at bedside Subjective: patient had a shower, feeling much better Objective: Vital Signs Temp Pulse Resp BP Pulse Ox 36.7 C 92 16 127/76 H 92 10/17/17 12:00 10/17/17 12:00 10/17/17 12:00 10/17/17 12:00 10/17/17 12:00 Laboratory Results 10/13/17 04:55 10/16/17 10:00 10/16/17 10/17/17 10/18/17 05:59 05:59 05:59 Intake Total 1620 1000 Output Total 2350 1525 425 Balance -730 -525 -425 PT 13.8 SEC (12.0-15.0) 10/04/17 04:15 INR 1.04 (0.83-1.16) 10/04/17 04:15 awake alert anicteric op clear rrr distant clear to ant auscultation obese soft + bs ble edema warm dry bilaterl lower extremity erythema 2/2 venous stasis responding to commands ICD10 Worksheet Patient Problems: Problems Problem Status Onset Pneumonia Acute
[2017-10-17] MEDS ORDERED: ALBUTEROL 60 PUFFS/8 GM MDI IH PRN (14:55)
[2017-10-17] MEDS: IPRATROPIUM/ALBUTEROL 3 ML DEYVIAL IH SCH ×2 (15:41→20:15)
[2017-10-18] MEDS: IPRATROPIUM/ALBUTEROL 3 ML DEYVIAL IH SCH ×4 (06:33→21:19)
[2017-10-18] MEDS: INSULIN REGULAR HUMAN 100 UNIT/ML UNIT SC SCH ×4 (07:54→21:05)
[2017-10-18] MEDS: LISINOPRIL 40 MG TAB PO SCH (08:12)
[2017-10-18] MEDS: CARVEDILOL 6.25 MG TAB PO SCH ×2 (08:12→17:54)
[2017-10-18] MEDS: amLODIPine BESYLATE 5 MG TAB PO SCH (08:13)
[2017-10-18] MEDS: SENNOSIDES 1 TAB PO SCH ×2 (08:13→21:05)
[2017-10-18] MEDS: FUROSEMIDE 20 MG TAB PO SCH ×2 (08:13→16:12)
[2017-10-18] MEDS: HYDROCORTISONE 2.5% 30 GM CRTUBE TP SCH ×2 (08:13→21:06)
[2017-10-18] MEDS: predniSONE 20 MG TAB PO SCH ×2 (08:13→17:54)
[2017-10-18] MEDS: ENOXAPARIN 40 MG/0.4 ML SYR SC SCH ×2 (08:13→21:04)
--- NOTE | 2017-10-18 11:05 | ASMTCMCOM ---
CM Note CM Note Notes: Met with patient to review dc plan. He is anxiously hoping to fly back to [place] early this week. Per RT they have all of the information needed to obtain oxygen to fly with but the airline tanks have difficulty if a persons needs exceed 3l. This was also discussed with the as well. Goal to ambulate and inprove oxygen capacity. Plan to dc to home when medically stable. CM to follow. Date Signed: 10/18/2017 11:04 AM Electronically Signed By:Rajani Kasper RN
--- NOTE | 2017-10-18 12:12 | HOSPPROG ---
Hospitalist Progress Note Assessment/Plan: 42 yo morbidly obese M admitted with SOB and acute respiratory failure # Acute hypercapneic and hypoxic respiratory failure- likely multifactorial with increased volume status with pleural effusions, EDIE, OHS, and human metapneumovirus. Intubated on the and extubated on . Doing well since extubation on 4-5L of O2--working on weaning to 3L as this would make travel more possible. # Leg erythema- 2/2 chronic venous stasis, improved # Alcohol use disorder- Doubt w/d at this point. # Hypertension- BP's improved back on home regimen (Norvasc, Lisinopril, Coreg) # Pulmonary nodule- outpatient follow-up in 3-6 months. # Hyperlipidemia - statin therapy currently on hold. # Hyperglycemia - likely hastened by steroids, a1c 6.1% # DVT prophylaxis - Lovenox. # GI prophylaxis - Pepcid. # Bowels- continue MiraLax and lactulose. # morbid obesity: recommend lifestyle modification # nutrition: was on TF, will work on swallow eval IP status Care plan reviewed with CM and RT Subjective: no significant overnight events, patient states yesterday he did a lot of walking and overdid it but today feels better Objective: Vital Signs Temp Pulse Resp BP Pulse Ox 36.8 C 82 16 99/53 L 90 L 10/18/17 11:28 10/18/17 11:28 10/18/17 11:28 10/18/17 11:28 10/18/17 11:28 Laboratory Results 10/13/17 04:55 10/16/17 10:00 10/17/17 10/18/17 10/19/17 05:59 05:59 05:59 Intake Total 1000 1200 Output Total 1525 725 550 Balance -525 475 -550 PT 13.8 SEC (12.0-15.0) 10/04/17 04:15 INR 1.04 (0.83-1.16) 10/04/17 04:15 awake alert anicteric op clear rrr distant clear to ant auscultation obese soft + bs ble edema warm dry bilaterl lower extremity erythema 2/2 venous stasis responding to commands ICD10 Worksheet Patient Problems: Problems Problem Status Onset Pneumonia Acute
[2017-10-19 05:06] VITALS: TEMP 97.8
[2017-10-19] MEDS: IPRATROPIUM/ALBUTEROL 3 ML DEYVIAL IH SCH ×2 (05:12→11:32)
[2017-10-19 08:23] VITALS: BP 145/90; PULSE 96; RESP 18; O2SAT 95
[2017-10-19] MEDS: INSULIN REGULAR HUMAN 100 UNIT/ML UNIT SC SCH (09:05)
--- NOTE | 2017-10-19 09:07 | PDHOMEO2F ---
Home Oxygen Face to Face Home Orders: I certify that a physician or a nurse practitioner or physician's physiotherapist's assistant has had a [id number] encounter with this patient on the date of this order due to the diagnosis listed, which relates to the primary reason the patient requires home oxygen. Alternative treatments have been tried, or considered, and deemed ineffective. It is anticipated that supplemental oxygen will result in improvement with treatment. Home oxygen qualifying diagnosis: pneumonia Home oxygen secondary diagnosis: obesity hypoventilation syndrome SpO2 on room air (%): 83 Frequency of home oxygen needed: continuous Home oxygen liters per minute: 3 Home oxygen delivery device: nasal cannula Concentrator: Yes E-tanks for mobility and back up: Yes If ordering portable O2, is the patient mobile in the home?: Yes I certify that, based on these findings, the home oxygen is medically necessary for this patient for the following length of time. Length of time home oxygen needed: 1 month
--- NOTE | 2017-10-19 09:34 | PDDCSUM ---
Discharge Summary Discharge Summary: Dates of service 10/01-10/19/2017 Consultations: pulmonary/critical care, general surgery Procedures performed: endotracheal intubation, bronchoscopy x 3, central line placement, echocardiogram Hospital course by problem: # Acute hypercapneic and hypoxic respiratory failure- likely multifactorial with increased volume status with pleural effusions, EDIE, OHS, and human metapneumovirus. Intubated on the and extubated on . Since extubation doing well and maintaining now on 3L # Leg erythema- 2/2 chronic venous stasis, improved # Alcohol use disorder- Doubt w/d at this point. # Hypertension- BP's improved back on home regimen (Norvasc, Lisinopril, Coreg) # Pulmonary nodule- outpatient follow-up in 3-6 months. # Hyperlipidemia - statin therapy currently on hold. # Hyperglycemia - likely hastened by steroids, a1c 6.1% # DVT prophylaxis - Lovenox. # GI prophylaxis - Pepcid. # Bowels- continue MiraLax and lactulose. # morbid obesity: recommend lifestyle modification # nutrition: was on TF, now eating without issues Dc to home, patient to fly home out of state > 40 min spent on dc more than half in coordination of care
[2017-10-19] MEDS: ENOXAPARIN 40 MG/0.4 ML SYR SC SCH (10:02)
[2017-10-19] MEDS: CARVEDILOL 6.25 MG TAB PO SCH (10:03)
[2017-10-19] MEDS: LISINOPRIL 40 MG TAB PO SCH (10:03)
[2017-10-19] MEDS: predniSONE 20 MG TAB PO SCH (10:07)
[2017-10-19] MEDS: FUROSEMIDE 20 MG TAB PO SCH (10:07)
[2017-10-19] MEDS: amLODIPine BESYLATE 5 MG TAB PO SCH (10:07)
[2017-10-19] MEDS: SENNOSIDES 1 TAB PO SCH (10:08)
[2017-10-19] MEDS: HYDROCORTISONE 2.5% 30 GM CRTUBE TP SCH (10:11)
== END 2017-10-19 12:15 | disposition home or self-care (01) | DRG 207 ==
LOC: OBSVTOIN 18:34 → F2W 21:30 → F2N 10-03 12:32 → F3E 10-16 18:36
PROVIDERS: ADMIT Internal Medicine; ATTEND Internal Medicine
PROC: HZ2ZZZZ Detoxification Services for Substance Abuse Treatment (ICD-10-PCS; 2017-10-02)
PROC: 5A1955Z Respiratory Ventilation, Greater than 96 Consecutive Hours (ICD-10-PCS; principal; 2017-10-03)
PROC: 0BH13EZ Insertion of Endotracheal Airway into Trachea, Percutaneous Approach (ICD-10-PCS; 2017-10-03)
PROC: 05HM33Z Insertion of Infusion Device into Right Internal Jugular Vein, Percutaneous Approach (ICD-10-PCS; 2017-10-03)
PROC: 0B968ZX Drainage of Right Lower Lobe Bronchus, Via Natural or Artificial Opening Endoscopic, Diagnostic (ICD-10-PCS; 2017-10-04)
PROC: 0BJK8ZZ Inspection of Right Lung, Via Natural or Artificial Opening Endoscopic (ICD-10-PCS; 2017-10-05)
PROC: 0DH68UZ Insertion of Feeding Device into Stomach, Via Natural or Artificial Opening Endoscopic (ICD-10-PCS; 2017-10-05)
PROC: 0B968ZZ Drainage of Right Lower Lobe Bronchus, Via Natural or Artificial Opening Endoscopic (ICD-10-PCS; 2017-10-06)
PROC: 0B9B8ZZ Drainage of Left Lower Lobe Bronchus, Via Natural or Artificial Opening Endoscopic (ICD-10-PCS; 2017-10-06)
PROC: 0BJK8ZZ Inspection of Right Lung, Via Natural or Artificial Opening Endoscopic (ICD-10-PCS; 2017-10-09)
PROC: 0BJL8ZZ Inspection of Left Lung, Via Natural or Artificial Opening Endoscopic (ICD-10-PCS; 2017-10-09)
DX: J96.01 Acute respiratory failure with hypoxia (principal); J12.3 Human metapneumovirus pneumonia; E66.2 Morbid (severe) obesity with alveolar hypoventilation; J96.02 Acute respiratory failure with hypercapnia; J44.9 Chronic obstructive pulmonary disease, unspecified; F10.27 Alcohol dependence with alcohol-induced persisting dementia; Z68.42 Body mass index [BMI] 45.0-49.9, adult; G31.2 Degeneration of nervous system due to alcohol; F17.210 Nicotine dependence, cigarettes, uncomplicated; I10 Essential (primary) hypertension; D75.1 Secondary polycythemia; E78.5 Hyperlipidemia, unspecified; J98.11 Atelectasis; R91.1 Solitary pulmonary nodule; Z99.81 Dependence on supplemental oxygen; R73.9 Hyperglycemia, unspecified; T49.6X5A Adverse effect of otorhinolaryngological drugs and preparations, initial encounter; I87.8 Other specified disorders of veins
CPT/HCPCS: 82784-90; 82947-QW; 83516-90; 83520-90; 92526-GN; 92610-GN; 97110-GO; 97110-GP; 97116-GP; 97163-GP; 97167-GO; 97530-GO; 97530-GP; 97535-GO; J0696; J1120; J1650; J1815; J1940; J1956; J2060; J2250; J2704; J2765; J2930; J3010; J3411; J3475; J7512; Q9967